=== PATIENT | male | born 1955 | race Caucasian/White ===

== ENCOUNTER 2017-05-15 19:44 | Inpatient (IN) ==
[2017-05-15] MEDS ORDERED: Piperacillin/Tazobactam 3.375 GM in 0.9 % Sodium Chloride Mini Bag 100 ML IVPB ONE (20:14)
--- NOTE | 2017-05-15 20:15 | Emergency Department Note ---
Disposition Clinical Impression: Diverticulitis, Perforated diverticulum, Intra-abdominal abscess Disposition: Admitted As Inpatient Condition: Undetermined [facility] - Forms: ED Satisfaction Letter, Work/School Release Time of Disposition: 22:04 Abdominal Pain HPI - General Chief Complaint: ED Abdominal Pain Stated Complaint: abdominal pains Time Seen by Provider: 05/15/17 20:12 Source: patient Mode of arrival: EMS Limitations: no limitations Nursing Notes Reviewed: Yes Vital Signs Reviewed: Yes - History of Present Illness HPI Narrative: 62-year-old male with history of diverticulosis arrives to the emergency emergency department complaining of abdominal pain that started 5 days ago. The patient states this progressively gotten worse. The patient states that he knew that it was his diverticulitis acting up and cut back on his food intake and decided that he was going to treat it himself. The patient states that it acutely worsened over the past 48 hours. He went to [place] urgent care with a performed a CT scan of his abdomen which demonstrated perforated diverticulitis with macro perforation and possible abscess formation. At that time the patient was transferred [facility] emergency department for further care and workup. The patient is a leukocytosis of 14.8. His potassium is also elevated at 5.4 but he has a history of CK D with the GFR of 38. This appears baseline for the patient. The patient is resting comfortably at this time with no signs of tachycardia or hypotension. His abdomen is tender to palpation without any signs of rigidity or guarding noted. Pt Subjective Complaint: abdominal pain Onset (ago): day(s) (5) Consistency: constant, Worsening Location: diffuse Pain Severity: mild, moderate Pain Scale: 2 Quality: stabbing Radiation: none Migration to: no migration Improves with: nothing Worsens with: nothing Context: history of similar episodes Associated symptoms: Reports: nausea, chills. Denies: vomiting, diarrhea, fever , constipation, dysuria, hematemesis, hematochezia, melena, hematuria Treatments prior to arrival: other (IV analgesics) - Related Data Home Medications Medication Instructions Recorded Confirmed Aspirin Enteric Coated [Aspirin EC] 81 mg PO DAILY 05/15/17 05/15/17 Atorvastatin Calcium [Lipitor] 40 mg PO DAILY 05/15/17 05/15/17 Glucosamine/D3/Boswellia Vijaya 1 each PO DAILY 05/15/17 05/15/17 [Osteo Bi-Flex Tablet] Lisinopril [Zestril] 40 mg PO DAILY 05/15/17 05/15/17 Multivit-Min/FA/Lycopen/Lutein 1 each PO DAILY 05/15/17 05/15/17 [Centrum Silver Tablet] Allergies Allergy/AdvReac Type Severity Reaction Status Date / Time No Known Allergies Allergy Verified 05/15/17 21:15 All systems ED: reviewed and negative except as stated. Constitutional: Reports: chills. Denies: fever, weakness ENT ED: Denies: congestion Cardiovascular: Denies: chest pain Respiratory: Denies: dyspnea Gastrointestinal: Reports: abdominal pain, nausea. Denies: vomiting, diarrhea Genitourinary: Denies: urgency, dysuria Musculoskeletal: Denies: back pain Integumentary: Denies: rash Neurological: Denies: headache, weakness, numbness, paresthesias Abdominal Pain PMH - Past Medical History Medical history: Reports: hyperlipidemia, hypertension Reports: diverticulosis, diverticulitis Male Surgical History: Reports: orthopedic, other Psychiatric history: Reports: no psych history - Social History Smoking status: Never smoker Alcohol use: Reports: none Drug use: Reports: none Physical Exam - General Limitations: no limitations General appearance: alert, in no apparent distress - Head Head exam: atraumatic, normocephalic, normal inspection - Eye Eye exam: Present: normal appearance, PERRL, EOMI - ENT ENT exam: normal exam, normal oropharynx, mucous membranes moist - Neck Neck exam: Present: normal inspection, full ROM, trachea midline - Chest Chest inspection: Present: normal inspection, symmetric chest wall rise - Respiratory Respiratory exam: Present: normal lung sounds bilaterally - Cardiovascular Cardiovascular exam: Present: normal rhythm, tachycardia, normal heart sounds - Abdominal Exam Abdominal exam: Present: soft, tenderness (Diffuse). Absent: distention, guarding, rebound, rigidity, heel tap sign, Salcedo's sign, Rovsing's sign, tenderness at McBurney's Point Abdominal tenderness: Present: diffuse, moderate - Extremities Exam Extremities exam: Present: normal inspection, full ROM. Absent: tenderness, pedal edema Course - Consultations Consultation #1: Spoke to Dr. Tavarez in surgery that no further recommendations at this time. Consult was placed. Time: 21:27 Vital Signs Temperature 97.6 F 05/15/17 19:48 Pulse Rate 100 05/15/17 19:48 Respiratory Rate 12 05/15/17 19:48 Blood Pressure 158/92 05/15/17 19:48 O2 Sat by Pulse Oximetry 98 05/15/17 19:48 Temperature 97.6 F 05/15/17 19:48 Pulse Rate 91 05/15/17 21:05 Respiratory Rate 20 05/15/17 21:05 Blood Pressure 131/74 05/15/17 21:05 O2 Sat by Pulse Oximetry 97 05/15/17 21:05 Oxygen Delivery Oxygen Delivery Room Air Abdominal Pain - MDM Narrative Medical decision making narrative: Patient's CT scan from the [facility] demonstrates macro perforation with concern for perforation associated with the diverticulitis. The patient was started on Zosyn. After speaking with Dr. Barnett and surgery recommended admitting to the hospitalist service. The patient will be admitted to the hospitalist service, accepted by Dr. Singleton. He requestd Flagyl. - Medical Records Medical records reviewed: Yes I reviewed the patient's medical records. - Lab Data Lab results reviewed: Yes I reviewed the patient's lab results. Lab Results 05/15/17 Range/Units 21:15 Lactic Acid 0.9 (0.5-2.2) mmol/L - Radiology Data Radiology results reviewed: Yes I reviewed the patient's radiology results.
[2017-05-15] MEDS ORDERED: 0.9 % Sodium Chloride 1,000 ML IVC ONE (21:06)
--- NOTE | 2017-05-15 21:10 | Emergency Department Note ---
START Narrative - START START: I examined this patient and my medical decision-making was reviewed with the Resident Physician. I agree with the documented findings, disposition and treatment plan as described except to the extent set forth below. 62 [facility] recent[facility] has been experiencingin increased lower and llq pain that started about 3-4 days ago with difficult with pasing stool and gas with decrased appetite and subjective fevers and chills at home had a wokrup at the [place] today whcih showed a macroperforation with diverticulitis of his sigmoid colon. WE have started IVF, zosyn and will consult surgery. blood cultures obtained. Zainab does not have a surgical abdomen but is tender to the LLQ and lower abdomen, not tahcyardiac and his blood pressure is stabe.
[2017-05-15] MEDS ORDERED: MetroNIDAZOLE 500 MG/100 ML 500 MG/100 ML BAG IVPB ONE (21:59)
--- NOTE | 2017-05-15 23:49 | Internal Med History&Physical ---
Date of Encounter: 05/15/17 Time of Encounter: 23:47 Assessment and Plan (1) Hypertension Current visit: Yes Status: Acute Continue home medication lisinopril 40 mg daily. Qualifiers: Qualified Code(s): I10 - Essential (primary) hypertension (2) Polycystic kidney disease Current visit: Yes Status: Acute Patient has polycystic kidney disease and CKD stage 3, stable. (3) DNR (do not resuscitate) Current visit: Yes Status: Acute Patient is do not resuscitate. (4) Diverticulitis Current visit: Yes Status: Acute Acute diverticulitis with macro perforation and abscess formation 321.5 cm. No peritoneal signs. No mention of free air on CT. I will start the patient on a meropenem and Flagyl. Keep NPO. Hydrate. Internal Medicine - H&P: HPI Chief complaint: abdominal pain History of present illness: Mr. Grewal is a 62 year old male was transferred from the [place] to our facility for management of complicated diverticulitis. Patient is a 62-year-old male with a history of hypertension, polycystic kidney disease, CKD stage III, dyslipidemia, with prior episode of acute diverticulitis presents to the emergency room with a main component of abdominal pain. Since Sunday 4 days ago patient started complaining of left lower quadrant abdominal pain worsens with movement and eating. He noticed difficulty defecating. He has been avoiding federal since Sunday to avoid worsening of his pain. He denies any fever or chills. Denies any hematochezia. He had prior episode of acute diverticulitis. CT scan of the abdomen and pelvis showed complicated acute diverticulitis. Colonoscopy 5 years ago unremarkable according to patient. Past Med Surg Social Fam HX - Past Medical History Medical history: hyperlipidemia, hypertension Psychiatric history: no psych history - Social History Smoking Status: Never smoker Smokeless Tobacco Status: No Alcohol use: none Drug use: none Internal Medicine - H&P: Meds Aspirin Enteric Coated [Aspirin EC] 81 mg PO DAILY 05/15/17 [History] Atorvastatin Calcium [Lipitor] 40 mg PO DAILY 05/15/17 [History] Glucosamine/D3/Boswellia Vijaya [Osteo Bi-Flex Tablet] 1 each PO DAILY 05/15/17 [ History] Lisinopril [Zestril] 40 mg PO DAILY 05/15/17 [History] Multivit-Min/FA/Lycopen/Lutein [Centrum Silver Tablet] 1 each PO DAILY 05/15/17 [History] 3 Allergy/AdvReac Type Severity Reaction Status Date / Time No Known Allergies Allergy Verified 05/15/17 21:15 All Systems PM: A 10-system review of systems was performed and is negative for pertinent findings except as documented above in the HPI. Review of systems: 10 point review of systems is negative except for HPI - Constitutional Vitals: Temp Pulse Resp BP Pulse Ox 97.9 F 92 15 109/77 97 05/15/17 23:13 05/15/17 23:13 05/15/17 23:13 05/15/17 23:13 05/15/17 23:13 Exam: Gen.: patient is alert oriented times 3 cardiac: normal S1 S2 no additional sounds or murmurs chest: no active wheezing or bronchial breathing abdomen tenderness in LLQ, no rebound or guarding lower extremity no swelling. Neuro: no new focal deficits
[2017-05-16] MEDS ORDERED: MetroNIDAZOLE 500 MG/100 ML 500 MG/100 ML BAG IVPB SCH
[2017-05-16 00:53] LABS: Basophils # 0.1 K/mcL (0.0-0.2); Basophils % 0.6 %; Eosinophils # 0.2 K/mcL (0.0-0.6); Eosinophils % 1.7 %; Hematocrit 34.5 % (37.5-50.1); Hemoglobin 10.5 g/dL (12.9-16.9); Immature Granulocytes % 0.5 % (0-4); Lymphocytes # 2.4 K/mcL (0.6-4.6); Lymphocytes % 21.5 %; Mean Corpuscular HGB Conc 30.4 g/dL (31.6-35.5); Mean Corpuscular Hemoglobin 24.3 pg (28.0-33.3); Mean Corpuscular Volume 79.9 fL (83.0-100.0); Mean Platelet Volume 9.1 fL (9.4-12.4); Monocytes # 1.1 K/mcL (0.0-1.3); Monocytes % 9.5 %; Neutrophils # 7.4 K/mcL (1.6-8.9); Platelet Count 527 K/mcL (140-400); Red Blood Count 4.32 M/mcL (4.19-5.50); Red Cell Distribution Width 15.6 % (11.5-14.5); Segmented Neutrophils % 66.2 %
[2017-05-16 00:59] LABS: INR 1.2; Prothrombin Time 13.4 Seconds (9.4-12.1)
[2017-05-16] MEDS: D5% in 0.9% NACL 1,000 ML IVC SCH ×3 (01:17→21:56)
[2017-05-16] MEDS: Meropenem 1,000 MG in Water for inj. (sterile) 10 ML IVP SCH ×3 (01:17→16:22)
[2017-05-16 01:18] LABS: Calcium 9.3 mg/dL (8.6-10.8); Magnesium 1.8 mg/dL (1.6-2.6); Potassium 3.6 mEq/L (3.5-4.5)
[2017-05-16] MEDS: MetroNIDAZOLE 500 MG/100 ML 500 MG/100 ML BAG IVPB SCH ×3 (05:52→21:47)
[2017-05-16] MEDS: *HR* Heparin 5,000 UNIT/ML VIAL SQ SCH ×2 (05:55→17:59)
[2017-05-16] MEDS ORDERED: Famotidine 20 MG/2 ML VIAL IVP SCH (06:00)
[2017-05-16] MEDS ORDERED: Aspirin Enteric Coated 81 MG Tablet PO SCH (09:00)
[2017-05-16] MEDS: Lisinopril 20 MG TABLET PO SCH (09:17)
--- NOTE | 2017-05-16 10:20 | General Surgery Consult Note ---
Date of Encounter: 05/16/17 Time of Encounter: 10:00 Assessment and Plan (1) Diverticulitis of colon with perforation Current Visit: Yes Status: Acute Continue with conservative measures including: Bowel rest except for ice chips sparingly IV fluids- 100ml/hour IV antibiotics- Meropenem and Flagyl Supportive care and pain control Serial abdominal exams No urgent surgical intervention indicated at this time Plan for interval colonoscopy in the next 6-8 weeks Surgery will continue to follow and assess progress Qualifiers: Diverticulitis bleeding: without bleeding Qualified Code(s): K57.20 - Diverticulitis of large intestine with perforation and abscess without bleeding (2) Hyperlipidemia Current Visit: Yes Status: Chronic Qualifiers: Hyperlipidemia type: unspecified Qualified Code(s): E78.5 - Hyperlipidemia , unspecified (3) Hypertension Current Visit: Yes Status: Chronic Normotensive at this time Management per medicine service Qualifiers: Hypertension type: essential hypertension Qualified Code(s): I10 - Essential (primary) hypertension (4) Polycystic kidney disease Current Visit: Yes Status: Acute Cr- 1.64 IV fluids Strict I&Os Avoid nephrotoxic medications Repeat am labs Management per medicine service (5) DVT prophylaxis Current Visit: Yes Status: Acute Heparin 5,000 units SQ twice daily for DVT prophylaxis Ambulate hallways TID History of Present Illness Consult date: 05/15/17 Reason for consult: other (Diverticulitis) Requesting physician: Yahir Carty History of present illness: Mr. Grewal is a very pleasant 62 year old male who was transferred from the [facility] last evening with diverticulitis with perforation. He states that he began having LLQ abdominal pain 5 days ago. He reports that the pain has been constant with occasional sharp/stabbing pains. He reports that the pain becomes severe approximately 2 hours after eating. He states that he has had pain similar to this in the past and it was related to diverticulitis. His last episode was 3-4 years ago and he was hospitalized at that time for 2-3 days. He states that his symptoms resolved without surgical intervention. He reports that his pain has been persistent and that he has not had anything to eat for the past 4 days. He reported to the ED yesterday for evaluation and was found to have acute diverticulitis with perforation by CT scan. He reports that he has had difficulty having bowel movements and feels constipated. His last bowel movement was 2 days ago and was very small. He has continued to pass flatus. Denies any melena or hematochezia. Denies any nausea/vomiting. He reports bloating initially but states that this has resolved. Denies any fevers/ chills. He does have an appetite. Denies any difficulty with urination. Denies any shortness of breath or chest pains. His last colonoscopy was 5 years ago at the [facility] and the patient reports that it was normal at that time. We have been asked to see and evaluate the patient for recommendations. Past Med Surg Social Fam HX - Past Medical History Source: patient, old records reviewed Medical history: arthritis, hyperlipidemia, hypertension, renal disease ( Polycystic kidney disease; CKD stage 3) Psychiatric history: no psych history - Past Surgical History Surgical History: other (Bilateral ankle surgery (1977, 1978); Colonoscopy approximately 5 years ago) - Social History Smoking Status: Never smoker Smokeless Tobacco Status: No Alcohol use: none Drug use: none Current living situation: Home - Independent Activity Level: Independent ambulation - Family History Mother Age at : 85 Cause of : Emphysema Father Living Status: Age at : 75 Cause of : Heart disease Hx Family Cardiac Disorders: Yes Brother Living Status: Still Living Hx Family Cancer: Yes (Leukemia) Hx Family Autoimmune Disorders: Yes (Lupus) Medications and Allergies Aspirin Enteric Coated [Aspirin EC] 81 mg PO DAILY 05/15/17 [History] Atorvastatin Calcium [Lipitor] 40 mg PO DAILY 05/15/17 [History] Glucosamine/D3/Boswellia Vijaya [Osteo Bi-Flex Tablet] 1 each PO DAILY 05/15/17 [ History] Lisinopril [Zestril] 40 mg PO DAILY 05/15/17 [History] Multivit-Min/FA/Lycopen/Lutein [Centrum Silver Tablet] 1 each PO DAILY 05/15/17 [History] 3 Allergy/AdvReac Type Severity Reaction Status Date / Time No Known Allergies Allergy Verified 05/15/17 21:15 Review of Systems All systems PM: reviewed and no additional remarkable complaints except as stated (in the HPI) All systems PM: A 10-system review of systems was performed and is negative for pertinent findings except as documented above in the HPI. General Surgery Exam Initial Vital Signs Temp Pulse Resp BP Pulse Ox 97.6 F 100 12 158/92 98 05/15/17 19:48 05/15/17 19:48 05/15/17 19:48 05/15/17 19:48 05/15/17 19:48 - General physical appearance well developed, well nourished, no distress - Eyes PERRL, normal ocular movement - ENT normal mucosa, atraumatic, normocephalic - Neck trachea midline - Respiratory normal expansion, normal respiratory effort, clear to auscultation - Cardiovascular Cardiovascular exam: Present: RRR - Abdomen Abdomen general surgery: Present: bowel sounds present, soft, tender Abdominal Tenderness: Present: LLQ - Integumentary Integumentary general surgery: Present: warm and dry - Neurologic Present: CN 2-12 grossly intact - Musculoskeletal Present: normal gait, normal posture - Psychiatric Psychiatric general surgery: Present: appropriate, oriented to person, oriented to place, oriented to time, speech is normal, memory intact Exam Initial Vital Signs Temp Pulse Resp BP Pulse Ox 97.6 F 100 12 158/92 98 05/15/17 19:48 05/15/17 19:48 05/15/17 19:48 05/15/17 19:48 05/15/17 19:48 Results - Labs 05/16/17 00:15 05/16/17 00:15 Abnormal lab results WBC 11.2 K/mcL (4.3-11.1) H 05/16/17 00:15 Hgb 10.5 g/dL (12.9-16.9) L 05/16/17 00:15 Hct 34.5 % (37.5-50.1) L 05/16/17 00:15 MCV 79.9 fL (83.0-100.0) L 05/16/17 00:15 MCH 24.3 pg (28.0-33.3) L 05/16/17 00:15 MCHC 30.4 g/dL (31.6-35.5) L 05/16/17 00:15 RDW 15.6 % (11.5-14.5) H 05/16/17 00:15 Plt Count 527 K/mcL (140-400) H 05/16/17 00:15 MPV 9.1 fL (9.4-12.4) L 05/16/17 00:15 PT 13.4 Seconds (9.4-12.1) H 05/16/17 00:15 Creatinine 1.64 mg/dL (0.72-1.25) H 05/16/17 00:15 Est GFR ( Amer) 52 (> 60) L 05/16/17 00:15 Est GFR (Non-Af Amer) 43 (> 60) L 05/16/17 00:15 C-Reactive Protein 184 mg/L (Less than 5) H 05/16/17 00:15 Diabetes panel 05/16/17 Range/Units 00:15 Sodium 138 (136-145) mEq/L Potassium 3.6 (3.5-4.5) mEq/L Chloride 103 (98-109) mEq/L Carbon Dioxide 23 (19-29) mEq/L BUN 26 (8-26) mg/dL Creatinine 1.64 H (0.72-1.25) mg/dL Glucose 90 (70-99) mg/dL Calcium 9.3 (8.6-10.8) mg/dL Calcium panel 05/16/17 Range/Units 00:15 Calcium 9.3 (8.6-10.8) mg/dL Pituitary panel 05/16/17 Range/Units 00:15 Sodium 138 (136-145) mEq/L Potassium 3.6 (3.5-4.5) mEq/L Chloride 103 (98-109) mEq/L Carbon Dioxide 23 (19-29) mEq/L BUN 26 (8-26) mg/dL Creatinine 1.64 H (0.72-1.25) mg/dL Glucose 90 (70-99) mg/dL Calcium 9.3 (8.6-10.8) mg/dL Adrenal panel 05/16/17 Range/Units 00:15 Sodium 138 (136-145) mEq/L Potassium 3.6 (3.5-4.5) mEq/L Chloride 103 (98-109) mEq/L Carbon Dioxide 23 (19-29) mEq/L BUN 26 (8-26) mg/dL Creatinine 1.64 H (0.72-1.25) mg/dL Glucose 90 (70-99) mg/dL Calcium 9.3 (8.6-10.8) mg/dL All other labs normal. - Imaging CT scan - abdomen: report reviewed CT scan - pelvis: report reviewed Consult Discharge Plan - Plan Referrals: [facility] [Outside] - Attending Attestation For this encounter, I have reviewed the [place] or [place] documentation, treatment plan, and medical decision making; and I have had face to face time with this patient.
--- NOTE | 2017-05-16 16:06 | Internal Med Progress Note ---
Date of Encounter: 05/16/17 Time of Encounter: 16:04 - Assessment and plan (1) Diverticulitis of colon with perforation Current Visit: Yes Status: Acute Assessment and plan: Strict NPO IV fluids.. will swithc to D5 NS Cont broad spec abx Meropenem + Flagyl Surgery on board - recommend conservative medical management and close monitoring for now d/c ASA Qualifiers: Diverticulitis bleeding: without bleeding Qualified Code(s): K57.20 - Diverticulitis of large intestine with perforation and abscess without bleeding (2) Hypertension Current Visit: Yes Status: Chronic Assessment and plan: stable with home med Lisinopril 40mg Daily Qualifiers: Hypertension type: essential hypertension Qualified Code(s): I10 - Essential (primary) hypertension (3) Polycystic kidney disease Current Visit: Yes Status: Chronic Assessment and plan: f/u as an out pt (4) Hyperlipidemia Current Visit: Yes Status: Chronic Assessment and plan: on statin Qualifiers: Hyperlipidemia type: unspecified Qualified Code(s): E78.5 - Hyperlipidemia , unspecified (5) CKD (chronic kidney disease), stage III Current Visit: Yes Status: Acute Assessment and plan: stable Cr at baseline - Subjective Interval history: Mr. Grewal is a 62 year old male with a history of hypertension, polycystic kidney disease, CKD stage III, dyslipidemia, with prior episode of acute diverticulitis presents to the [place] emergency room with abdominal pain from last 4 days. He does complaining of left lower quadrant abdominal pain worsens with movement and eating. He noticed difficulty defecating. He had further work up done at [place] ER, his CT of abd showed Acute diverticulitis with macro perforation and abscess formation 321.5 cm. No peritoneal signs. No mention of free air on CT. Pt was admitted here and started him on IV hydration, NPO and broad spec abx. His symptoms started improving now. No more abdominal pain. - Constitutional Vitals: Temp Pulse Resp BP Pulse Ox 97.4 F L 81 16 127/67 98 05/16/17 13:52 05/16/17 13:52 05/16/17 13:52 05/16/17 13:52 05/16/17 13:52 General appearance: Present: A&O X 3, no acute distress, answers questions appropriately - Head Head exam: Present: atraumatic, normal inspection - Respiratory Respiratory exam: Present: decreased breath sounds. Absent: rales, respiratory distress, rhonchi, wheezes - Cardiovascular Cardiovascular exam: Present: RRR, +S1, +S2. Absent: systolic murmur - GI/Abdominal GI/Abdominal exam: Present: distended, normal bowel sounds, soft, no peritoneal signs. Absent: rebound, rigid, tenderness - Extremities Exam Extremities exam: Absent: calf tenderness, pedal edema, tenderness - Back Exam Back exam: Absent: CVA tenderness (L), CVA tenderness (R) - Neurological Exam Neurological exam: Present: alert, oriented X3 - Psychiatric Psychiatric exam: Present: normal affect, normal mood Internal Medicine: Result - Labs CBC & Chem 7: 05/16/17 00:15 05/16/17 00:15 Labs: Short CBC 05/16/17 Range/Units 00:15 WBC 11.2 H (4.3-11.1) K/mcL Hgb 10.5 L (12.9-16.9) g/dL Hct 34.5 L (37.5-50.1) % Plt Count 527 H (140-400) K/mcL Neutrophils # 7.4 (1.6-8.9) K/mcL BMP 05/16/17 00:15 Sodium 138 Potassium 3.6 Chloride 103 Carbon Dioxide 23 BUN 26 Creatinine 1.64 H Glucose 90 Calcium 9.3 - ABG Interpretation ABG results: PT/INR, D-dimer PT 13.4 Seconds (9.4-12.1) H 05/16/17 00:15 Consult Discharge Plan - Plan Referrals: [facility] [Outside]
[2017-05-17] MEDS: Meropenem 1,000 MG in Water for inj. (sterile) 10 ML IVP SCH ×3 (00:34→20:33)
[2017-05-17] MEDS: MetroNIDAZOLE 500 MG/100 ML 500 MG/100 ML BAG IVPB SCH ×3 (05:20→21:55)
[2017-05-17] MEDS: Famotidine 20 MG/2 ML VIAL IVP SCH (05:21)
[2017-05-17] MEDS: *HR* Heparin 5,000 UNIT/ML VIAL SQ SCH ×2 (05:21→17:11)
[2017-05-17 05:50] LABS: Basophils # 0.1 K/mcL (0.0-0.2); Basophils % 0.5 %; Eosinophils # 0.2 K/mcL (0.0-0.6); Eosinophils % 1.8 %; Hematocrit 28.7 % (37.5-50.1); Immature Granulocytes % 0.3 % (0-4); Lymphocytes # 1.6 K/mcL (0.6-4.6); Lymphocytes % 17.5 %; Mean Corpuscular Hemoglobin 24.9 pg (28.0-33.3); Mean Corpuscular Volume 80.4 fL (83.0-100.0); Mean Platelet Volume 9.3 fL (9.4-12.4); Monocytes # 1.1 K/mcL (0.0-1.3); Monocytes % 12.3 %; Neutrophils # 6.2 K/mcL (1.6-8.9); Platelet Count 385 K/mcL (140-400); Red Blood Count 3.57 M/mcL (4.19-5.50); Red Cell Distribution Width 15.7 % (11.5-14.5); Segmented Neutrophils % 67.6 %
[2017-05-17 05:54] LABS: BUN/Creatinine Ratio 10 (6-26); Calcium 8.8 mg/dL (8.6-10.8); Carbon Dioxide 23 mEq/L (19-29); Chloride 112 mEq/L (98-109); Glucose 115 mg/dL (70-99); Osmolality,Calculated 299 (280-300); Potassium 4.2 mEq/L (3.5-4.5); Sodium 144 mEq/L (136-145); eGFR For African Americans > 60 (> 60); eGFR For Non-African Americans 51 (> 60)
[2017-05-17 05:55] LABS: Blood Urea Nitrogen 14 mg/dL (8-26)
[2017-05-17 05:58] LABS: Hemoglobin 8.9 g/dL (12.9-16.9)
[2017-05-17] MEDS: Lisinopril 20 MG TABLET PO SCH (08:38)
--- NOTE | 2017-05-17 11:05 | General Surgery Progress Note ---
Date of Encounter: 05/17/17 Time of Encounter: 10:30 - Assessment and Plan (1) Diverticulitis of colon with perforation Current Visit: Yes Status: Acute Continue with conservative measures including: No discomfort. States positive flatus and BM today. States appetite. IV fluids- 100ml/hour per primary medicine. IV antibiotics- Meropenem and Flagyl Supportive care and pain control Serial abdominal exams No urgent surgical intervention indicated at this time, ok to start clear liquids today (if he has any pain with p.o.-return to NPO) Plan for interval colonoscopy in the next 6-8 weeks Surgery will continue to follow and assess progress Qualifiers: Diverticulitis bleeding: without bleeding Qualified Code(s): K57.20 - Diverticulitis of large intestine with perforation and abscess without bleeding (2) Polycystic kidney disease Current Visit: Yes Status: Chronic Total fluid management per primary medicine Subjective Patient reports: no new complaints, feels better, voiding w/o difficulty, flatus , bowel movement, afebrile Objective Vital Signs - Last 8 Hours Temp Pulse Resp BP Pulse Ox 05/17/17 08:13 98 F 77 16 121/76 96 05/17/17 03:58 98.4 F 76 16 102/56 96 Intake and Output 05/16/17 05/17/17 05/17/17 23:59 07:59 15:59 Intake Total 1210 / 1210 Output Total 700 / 700 0 / 0 450 / 450 Balance 510 / 510 -450 / -450 Intake: IV Fluids 1210 / 1210 10 10 D5% And 0.9% Nacl 1000 Ml 1,000 1000 / 1000 ML @ 100 mls/hr IVC .Q10H [facility] Rx#:[id number] Merrem 1,000 MG In Water for inj. (sterile) 10 ML @ 200 mls/ hr IVP Q8HR [facility] Rx#:[id number] Flagyl Premix 500 MG/100 ML 500 200 / 200 mg In 100 ml @ 100 mls/hr IVPB Q8H [facility] Rx#:[id number] Oral 0 / 0 0 / 0 Output: Urine 700 / 700 0 / 0 450 / 450 Other: Meal Dinner NPO NPO Stool Size Small Stool Consistency soft Stool Color Brown # Voids 1 Blood Glucose* 117 108 - General physical appearance well nourished, no distress - ENT atraumatic, normocephalic - Neck Neck exam: trachea midline, no venous distension - Respiratory normal expansion, normal respiratory effort, clear to auscultation - Cardiovascular Cardiovascular exam: Present: RRR, murmurs - Abdomen Abdomen: Present: bowel sounds present, soft, non tender - Integumentary no rash, no growths - Neurologic CN 2-12 grossly intact, normal coordination, normal sensation - Musculoskeletal normal gait, normal posture - Psychiatric oriented to time, oriented to person, oriented to place, speech is normal, memory intact - Labs 05/17/17 05:11 05/17/17 05:11 Diabetes panel 05/17/17 Range/Units 05:11 Sodium 144 (136-145) mEq/L Potassium 4.2 (3.5-4.5) mEq/L Chloride 112 H (98-109) mEq/L Carbon Dioxide 23 (19-29) mEq/L BUN 14 D (8-26) mg/dL Creatinine 1.42 H (0.72-1.25) mg/dL Glucose 115 H (70-99) mg/dL Calcium 8.8 (8.6-10.8) mg/dL Calcium panel 05/17/17 Range/Units 05:11 Calcium 8.8 (8.6-10.8) mg/dL Pituitary panel 05/17/17 Range/Units 05:11 Sodium 144 (136-145) mEq/L Potassium 4.2 (3.5-4.5) mEq/L Chloride 112 H (98-109) mEq/L Carbon Dioxide 23 (19-29) mEq/L BUN 14 D (8-26) mg/dL Creatinine 1.42 H (0.72-1.25) mg/dL Glucose 115 H (70-99) mg/dL Calcium 8.8 (8.6-10.8) mg/dL Adrenal panel 05/17/17 Range/Units 05:11 Sodium 144 (136-145) mEq/L Potassium 4.2 (3.5-4.5) mEq/L Chloride 112 H (98-109) mEq/L Carbon Dioxide 23 (19-29) mEq/L BUN 14 D (8-26) mg/dL Creatinine 1.42 H (0.72-1.25) mg/dL Glucose 115 H (70-99) mg/dL Calcium 8.8 (8.6-10.8) mg/dL Consult Discharge Plan - Plan Referrals: [facility] [Outside]
[2017-05-17] MEDS: D5% in 0.9% NACL 1,000 ML IVC SCH ×3 (11:52→21:56)
--- NOTE | 2017-05-17 13:13 | Internal Med Progress Note ---
Date of Encounter: 05/17/17 Time of Encounter: 13:11 - Assessment and plan (1) Diverticulitis of colon with perforation Current Visit: Yes Status: Acute Assessment and plan: Strict NPO ICont IV fluids D5 NS Cont broad spec abx Meropenem + Flagyl - adjusted the Meropenem dose as per his creatinine clearance Surgery on board - recommend conservative medical management and close monitoring for now d/c ASA Diet orders as per surgery recommendation only Qualifiers: Diverticulitis bleeding: without bleeding Qualified Code(s): K57.20 - Diverticulitis of large intestine with perforation and abscess without bleeding (2) Hypertension Current Visit: Yes Status: Chronic Assessment and plan: stable with home med Lisinopril 40mg Daily Qualifiers: Hypertension type: essential hypertension Qualified Code(s): I10 - Essential (primary) hypertension (3) Polycystic kidney disease Current Visit: Yes Status: Chronic Assessment and plan: f/u as an out pt (4) Hyperlipidemia Current Visit: Yes Status: Chronic Assessment and plan: on statin Qualifiers: Hyperlipidemia type: unspecified Qualified Code(s): E78.5 - Hyperlipidemia , unspecified (5) CKD (chronic kidney disease), stage III Current Visit: Yes Status: Acute Assessment and plan: stable Cr at baseline - Subjective Interval history: Mr. Grewal is a 62 year old male with a history of hypertension, polycystic kidney disease, CKD stage III, dyslipidemia, with prior episode of acute diverticulitis presents to the [facility] emergency room with abdominal pain from last 4 days. He does complaining of left lower quadrant abdominal pain worsens with movement and eating. He noticed difficulty defecating. He had further work up done at [facility] ER, his CT of abd showed Acute diverticulitis with macro perforation and abscess formation 321.5 cm. No peritoneal signs. No mention of free air on CT. Pt was admitted here and started him on IV hydration, NPO and broad spec abx. His symptoms started improving now. No more abdominal pain. No events over night. Pain resolved completely.. Had a BM last night.. No blood in his stool - Constitutional Vitals: Temp Pulse Resp BP Pulse Ox 97.9 F 72 15 135/83 97 05/17/17 12:00 05/17/17 12:00 05/17/17 12:00 05/17/17 12:00 05/17/17 12:00 General appearance: Present: A&O X 3, no acute distress, answers questions appropriately - Head Head exam: Present: atraumatic, normal inspection - Neck Neck exam general surgery: Present: supple - Respiratory Respiratory exam: Present: CTAB. Absent: decreased breath sounds, respiratory distress, rhonchi, wheezes - Cardiovascular Cardiovascular exam: Present: RRR, +S1, +S2. Absent: systolic murmur - GI/Abdominal GI/Abdominal exam: Present: normal bowel sounds, soft. Absent: rebound, rigid, tenderness - Extremities Exam Extremities exam: Absent: calf tenderness, pedal edema, tenderness - Neurological Exam Neurological exam: Present: alert, oriented X3 - Psychiatric Psychiatric exam: Present: normal affect, normal mood Internal Medicine: Result - Labs CBC & Chem 7: 05/17/17 05:11 05/17/17 05:11 Labs: Short CBC 05/17/17 Range/Units 05:11 WBC 9.2 (4.3-11.1) K/mcL Hgb 8.9 L D (12.9-16.9) g/dL Hct 28.7 L (37.5-50.1) % Plt Count 385 (140-400) K/mcL Neutrophils # 6.2 (1.6-8.9) K/mcL BMP 05/17/17 05:11 Sodium 144 Potassium 4.2 Chloride 112 H Carbon Dioxide 23 BUN 14 D Creatinine 1.42 H Glucose 115 H Calcium 8.8 - ABG Interpretation ABG results: PT/INR, D-dimer PT 13.4 Seconds (9.4-12.1) H 05/16/17 00:15 Consult Discharge Plan - Plan Referrals: [facility] [Outside]
[2017-05-18] MEDS: Famotidine 20 MG/2 ML VIAL IVP SCH (05:08)
[2017-05-18] MEDS: *HR* Heparin 5,000 UNIT/ML VIAL SQ SCH (05:08)
[2017-05-18] MEDS: MetroNIDAZOLE 500 MG/100 ML 500 MG/100 ML BAG IVPB SCH (05:08)
[2017-05-18 05:49] LABS: Basophils % 0.5 %; Eosinophils # 0.2 K/mcL (0.0-0.6); Hematocrit 28.8 % (37.5-50.1); Hemoglobin 8.8 g/dL (12.9-16.9); Immature Granulocytes % 0.5 % (0-4); Lymphocytes # 1.6 K/mcL (0.6-4.6); Lymphocytes % 19.9 %; Mean Corpuscular HGB Conc 30.6 g/dL (31.6-35.5); Mean Corpuscular Hemoglobin 24.6 pg (28.0-33.3); Mean Corpuscular Volume 80.7 fL (83.0-100.0); Mean Platelet Volume 9.5 fL (9.4-12.4); Monocytes # 0.8 K/mcL (0.0-1.3); Monocytes % 10.7 %; Neutrophils # 5.2 K/mcL (1.6-8.9); Platelet Count 372 K/mcL (140-400); Red Blood Count 3.57 M/mcL (4.19-5.50); Red Cell Distribution Width 15.7 % (11.5-14.5); Segmented Neutrophils % 66.4 %
[2017-05-18 06:03] LABS: BUN/Creatinine Ratio 8 (6-26); Blood Urea Nitrogen 11 mg/dL (8-26); Calcium 8.5 mg/dL (8.6-10.8); Carbon Dioxide 23 mEq/L (19-29); Chloride 111 mEq/L (98-109); Glucose 103 mg/dL (70-99); Osmolality,Calculated 292 (280-300); Potassium 3.9 mEq/L (3.5-4.5); Sodium 141 mEq/L (136-145); eGFR For African Americans > 60 (> 60); eGFR For Non-African Americans 55 (> 60)
[2017-05-18] MEDS: Meropenem 1,000 MG in Water for inj. (sterile) 10 ML IVP SCH (07:43)
[2017-05-18] MEDS: Lisinopril 20 MG TABLET PO SCH (07:43)
[2017-05-18 07:58] VITALS: BP 141/82
--- NOTE | 2017-05-18 11:49 | General Surgery Progress Note ---
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 May transition to PO antibiotics Supportive care and pain control No urgent surgical intervention indicated at this time Plan for interval colonoscopy in the next 6-8 weeks May discharge to home from a surgery standpoint Qualifiers: Diverticulitis bleeding: without bleeding Qualified Code(s): K57.20 - Diverticulitis of large intestine with perforation and abscess without bleeding (2) Hyperlipidemia Current Visit: Yes Status: Chronic Qualifiers: Hyperlipidemia type: unspecified Qualified Code(s): E78.5 - Hyperlipidemia , unspecified (3) Hypertension Current Visit: Yes Status: Chronic Normotensive at this time Management per medicine service Qualifiers: Hypertension type: essential hypertension Qualified Code(s): I10 - Essential (primary) hypertension (4) Polycystic kidney disease Current Visit: Yes Status: Chronic Cr- 1.64>1.42>1.31 Strict I&Os Avoid nephrotoxic medications Management per medicine service (5) DVT prophylaxis Current Visit: Yes Status: Acute Heparin 5,000 units SQ twice daily for DVT prophylaxis Ambulate hallways TID Subjective Patient reports: no new complaints, feels better, tolerating liquids well (full liquids), voiding w/o difficulty, flatus, bowel movement, afebrile Objective Vital Signs - Last 8 Hours Temp Pulse Resp BP Pulse Ox 05/18/17 07:51 98.5 F 74 16 141/82 98 Intake and Output 05/17/17 05/18/17 05/18/17 23:59 07:59 15:59 Intake Total 1530 / 1530 400 / 400 240 / 240 Output Total 225 / 225 300 / 300 350 / 350 Balance 1305 / 1305 100 / 100 -110 / -110 Intake: IV Fluids 1110 / 1110 D5% And 0.9% Nacl 1000 Ml 1,000 1000 / 1000 ML @ 100 mls/hr IVC .Q10H [facility] Rx#:[id number] Merrem 1,000 MG In Water for inj. (sterile) 10 ML @ 200 mls/ hr IVP Q12H [facility] Rx#:[id number] Flagyl Premix 500 MG/100 ML 500 100 / 100 mg In 100 ml @ 100 mls/hr IVPB Q8H [facility] Rx#:[id number] Oral 420 / 420 400 / 400 240 / 240 Output: Urine 225 / 225 300 / 300 350 / 350 Other: Meal Breakfast Percent of Meal Consumed 100% # Voids 0 # Bowel Movements 1 - General physical appearance well developed, well nourished, no distress, no pain - Eyes normal ocular movement - ENT normal mucosa, atraumatic, normocephalic - Neck Neck exam: trachea midline - Respiratory normal expansion, normal respiratory effort, clear to auscultation - Cardiovascular Cardiovascular exam: Present: RRR - Abdomen Abdomen: Present: bowel sounds present, soft, non tender - Neurologic CN 2-12 grossly intact - Musculoskeletal normal gait, normal posture - Psychiatric oriented to time, oriented to person, oriented to place, speech is normal, memory intact - Labs 05/18/17 05:07 05/18/17 05:07 Diabetes panel 05/18/17 Range/Units 05:07 Sodium 141 (136-145) mEq/L Potassium 3.9 (3.5-4.5) mEq/L Chloride 111 H (98-109) mEq/L Carbon Dioxide 23 (19-29) mEq/L BUN 11 (8-26) mg/dL Creatinine 1.31 H (0.72-1.25) mg/dL Glucose 103 H (70-99) mg/dL Calcium 8.5 L (8.6-10.8) mg/dL Calcium panel 05/18/17 Range/Units 05:07 Calcium 8.5 L (8.6-10.8) mg/dL Pituitary panel 05/18/17 Range/Units 05:07 Sodium 141 (136-145) mEq/L Potassium 3.9 (3.5-4.5) mEq/L Chloride 111 H (98-109) mEq/L Carbon Dioxide 23 (19-29) mEq/L BUN 11 (8-26) mg/dL Creatinine 1.31 H (0.72-1.25) mg/dL Glucose 103 H (70-99) mg/dL Calcium 8.5 L (8.6-10.8) mg/dL Adrenal panel 05/18/17 Range/Units 05:07 Sodium 141 (136-145) mEq/L Potassium 3.9 (3.5-4.5) mEq/L Chloride 111 H (98-109) mEq/L Carbon Dioxide 23 (19-29) mEq/L BUN 11 (8-26) mg/dL Creatinine 1.31 H (0.72-1.25) mg/dL Glucose 103 H (70-99) mg/dL Calcium 8.5 L (8.6-10.8) mg/dL Consult Discharge Plan - Plan Additional Instructions: Low residue diet for the next 8 weeks Referrals: [facility] [Outside] Timi Tavarez DO [Partnered Physician] - 05/29/17 9:10 am (hospital follow-up ; discuss interval colonoscopy) - Attending Attestation For this encounter, I have reviewed the PROFESSOR OF ENVIRONMENTAL STUDIES or PA documentation, treatment plan, and medical decision making; and I have had face to face time with this patient.
--- NOTE | 2017-05-18 11:54 | Discharge Summary ---
Date of Encounter: 05/18/17 Time of Encounter: 11:49 - Discharge Diagnosis (1) Diverticulitis of colon with perforation Priority: Primary Status: Acute Qualifiers: Qualified Code(s): K57.20 - Diverticulitis of large intestine with perforation and abscess without bleeding (2) Hypertension Priority: Secondary Status: Chronic Qualifiers: Qualified Code(s): I10 - Essential (primary) hypertension (3) Polycystic kidney disease Priority: Secondary Status: Chronic (4) Hyperlipidemia Priority: Secondary Status: Chronic Qualifiers: Qualified Code(s): E78.5 - Hyperlipidemia, unspecified (5) CKD (chronic kidney disease), stage III Priority: Secondary Status: Acute - Discharge Medications Prescriptions: levoFLOXacin [Levaquin] 500 mg PO DAILY #11 tablet metroNIDAZOLE [Flagyl] 500 mg PO TID #33 tablet Home Medications: Aspirin Enteric Coated [Aspirin EC] 81 mg PO DAILY 05/15/17 [History] Atorvastatin Calcium [Lipitor] 40 mg PO DAILY 05/15/17 [History] Glucosamine/D3/Boswellia Vijaya [Osteo Bi-Flex Tablet] 1 each PO DAILY 05/15/17 [ History] Lisinopril [Zestril] 40 mg PO DAILY 05/15/17 [History] Multivit-Min/FA/Lycopen/Lutein [Centrum Silver Tablet] 1 each PO DAILY 05/15/17 [History] levoFLOXacin [Levaquin] 500 mg PO DAILY #11 tablet 05/18/17 [Rx] metroNIDAZOLE [Flagyl] 500 mg PO TID #33 tablet 05/18/17 [Rx] Allergies/Adverse Reactions: 3 Allergy/AdvReac Type Severity Reaction Status Date / Time No Known Allergies Allergy Verified 05/15/17 21:15 Date of admission: 05/15/17 22:12 Primary care physician: PCP [facility] - Patient Status Disposition: Home, Self-Care Condition: Good Overall status at discharge: patient is back to baseline - Discharge Instructions Follow Up With: [facility] [Outside] Timi Tavarez DO [Partnered Physician] - Additional Instructions: Please come back to ER right away If you notice any abdomen distention / worsening Abd pain / Nausea / Vomiting / Blood in stool Also f/u with surgery Dr. Donaldson as scheduled by them - Diet and Activity Activity: increase activity as tolerated Diet: other (Soft and low residue diet) Hospital course: Mr. Grewal is a 62 year old male with a history of hypertension, polycystic kidney disease, CKD stage III, dyslipidemia, with prior episode of acute diverticulitis presents to the [facility] emergency room with abdominal pain from last 4 days. He does complaining of left lower quadrant abdominal pain worsens with movement and eating. He noticed difficulty defecating. He had further work up done at [facility] ER, his CT of abd showed Acute diverticulitis with macro perforation and abscess formation 321.5 cm. No peritoneal signs. No mention of free air on CT. Pt was admitted here and started him on IV hydration, NPO and broad spec abx. Pt was seen by surgery, who recommend conservative noon operable medical management only with IV abx and IV hydration. His abdominal pain resolved completely. He has been tolerating full liquid diet well since y/d. So advanced his diet today. Pt was evaluated surgery today and recommend to d/c him home with PO abx and f/u with them as an out pt. He does need Colonoscopy in 6-8 weeks. I did give him the instructions to come back to ER right away If he notices any abdomen distention / worsening Abd pain / Nausea / Vomiting / Blood in stool. - Time Spent with Patient Total time spent providing and/or coordinating discharge services: - Constitutional Vitals: Temp Pulse Resp BP Pulse Ox 98.5 F 74 16 141/82 98 05/18/17 07:51 05/18/17 07:51 05/18/17 07:51 05/18/17 07:51 05/18/17 07:51 General appearance: Present: A&O X 3, no acute distress, answers questions appropriately - Head Head exam: Present: atraumatic, normal inspection - Respiratory Respiratory exam: Present: CTAB. Absent: accessory muscle use, rales, rhonchi, wheezes - Cardiovascular Cardiovascular exam: Present: RRR, +S1, +S2. Absent: diastolic murmur, gallop, rubs, systolic murmur - GI/Abdominal GI/Abdominal exam: Present: normal bowel sounds, soft. Absent: distended, rebound, rigid, tenderness - Extremities Exam Extremities exam: Absent: calf tenderness, pedal edema, tenderness - Back Exam Back exam: Absent: CVA tenderness (L), CVA tenderness (R) - Psychiatric Psychiatric exam: Present: normal affect, normal mood
== END 2017-05-18 13:38 | disposition home or self-care (01) | DRG 392 ==
LOC: EMEROO 19:44 → 3ANU 22:12
PROVIDERS: ADMIT Pediatrics; ATTEND Family Medicine

== ENCOUNTER 2017-07-11 11:29 | Inpatient (IN) ==
--- NOTE | 2017-07-11 11:47 | History & Physical Report ---
Date of Encounter: 07/11/17 Time of Encounter: 11:46 24 Hour HP Update - Instructions Instructions: If the History and Physical is less than 30 days old and was completed prior to A.M. admission and or procedure and has NOT been updated on calendar day of procedure please complete this update prior to performing procedure. - Update Patient reports changes in Medical Condition: No Changes in examination, assessment, or condition: No Changes in Medication: No Preop tests/diagnostics Reviewed: Yes Surgery Remains Indicated: Yes Consent for Planned Operative Procedure(s) Verified: Yes - Pre-Operative Checklist Preoperative Checklist Indicated: Yes Prophylactic Antibiotic Ordered: Yes Home Medications Include Beta Sandy: No
[2017-07-11] MEDS ORDERED: Lidocaine -MPF 1% 2 ML VIAL ID ONE (11:53)
[2017-07-11] MEDS ORDERED: cefOXitin 2,000 MG in Water for inj. (sterile) 20 ML 10 ML IVP ONE (11:53)
--- NOTE | 2017-07-11 11:57 | Anesthesia Evaluation PreOp ---
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 HX Other Medical History: Renal (pollycystic kidney ds) Alcohol Use: none Drug use: none Medications and Allergies Aspirin Enteric Coated [Aspirin EC] 81 mg PO DAILY 05/15/17 [History] Atorvastatin Calcium [Lipitor] 40 mg PO DAILY 05/15/17 [History] Glucosamine/D3/Boswellia Vijaya [Osteo Bi-Flex Tablet] 1 each PO DAILY 05/15/17 [ History] Lisinopril [Zestril] 40 mg PO DAILY 05/15/17 [History] Multivit-Min/FA/Lycopen/Lutein [Centrum Silver Tablet] 1 each PO DAILY 05/15/17 [History] Ciprofloxacin [Cipro] 500 mg PO BID #20 tablet 06/25/17 [Rx] metroNIDAZOLE [Flagyl] 500 mg PO TID #30 tablet 06/25/17 [Rx] 3 Allergy/AdvReac Type Severity Reaction Status Date / Time No Known Allergies Allergy Verified 06/25/17 12:38 Anesthesia Results - Imaging EKG: report reviewed (SINUS RHYTHM) <Nick Mohan - Last Filed: 07/11/17 12:44> Date of Encounter: 07/11/17 - Past History Anesthesia History: No Prior Anesthetic Complications - Meds/Allergy Pre-op Review Medications Reviewed: Yes Allergies Reviewed: Yes Beta Blockers on Current Med List: No Anesthesia Results - Imaging EKG: report reviewed Anesthesia Exam O2 Sat Height 1.7 m Height 1.7 m Height 1.7 m Weight 78.925 kg Weight 78.925 kg Weight 78.925 kg O2 Sat by Pulse Oximetry 99 Vital Signs Temp Pulse Resp BP Pulse Ox 97.6 F 99 18 138/103 99 07/11/17 11:58 07/11/17 11:58 07/11/17 11:58 07/11/17 11:58 07/11/17 11:58 NPO (# of Hours): >8hrs Pain Scale: 0 Pain Scale Used: Numeric (1 - 10) - HEENT Pupil (Motor): Pupils equal Mallampati: II Teeth: Edentulous Oral Opening: Greater than 3 - INVOICE MACHINE OPERATOR LOC: Oriented INVOICE MACHINE OPERATOR Motor: Normal RUE, Normal LUE, Normal RLE, Normal LLE, Normal Face INVOICE MACHINE OPERATOR Sensory: Normal: RUE, LUE, RLE, LLE, Face - Cardiac Rhythm: Regular Murmur: None - Pulmonary Breath Sounds: bilateral Clear Respiratory Effort: Symmetrical Anesthesia Assess/Plan ASA Score: 2 Modified Qi Scale for Level of Consciousness: Cooperative, oriented, and tranquil Anesthetic Plan: General Autologous Blood: No Monitoring Plan: Standard Monitors Recovery Plan: PACU
[2017-07-11] MEDS ORDERED: Ringers Solution, Lactated 1,000 ML IVC SCH (12:00)
[2017-07-11] MEDS ORDERED: *HR* Labetalol 20 MG/4 ML SYRINGE IVP PRN (12:45)
[2017-07-11] MEDS ORDERED: Dexamethasone 4 MG/ML VIAL IVP PRN (12:45)
[2017-07-11] MEDS ORDERED: *HR* HYDROmorphone (PF) 1 MG/ML SYRINGE IVP PRN (12:45)
[2017-07-11] MEDS ORDERED: Ondansetron 4 MG/2 ML VIAL IVP PRN (12:45)
[2017-07-11] MEDS ORDERED: *HR* PHENYLEPHRINE 1,000 MCG/10 ML SYRINGE IVP ONE (13:17)
[2017-07-11] MEDS ORDERED: Lidocaine -MPF 2% 2 ML VIAL ONE (13:31)
[2017-07-11] MEDS ORDERED: *HR* Propofol 200 MG/20 ML VIAL IVP ONE (13:31)
[2017-07-11] MEDS ORDERED: *HR* Rocuronium Bromide 50 MG/5 ML VIAL ONE ×2 (13:31→15:26)
[2017-07-11] MEDS ORDERED: *HR* Succinylcholine 200 MG/10 ML VIAL IVP ONE (13:31)
[2017-07-11] MEDS ORDERED: *HR* Midazolam HCl 2 MG/2 ML VIAL ONE (13:31)
[2017-07-11] MEDS ORDERED: *HR* FentaNYL (PF) 100 MCG/2 ML VIAL ONE ×2 (13:31→15:30)
[2017-07-11] MEDS ORDERED: Dexamethasone 4 MG/ML VIAL ONE (14:53)
[2017-07-11] MEDS ORDERED: Ondansetron 4 MG/2 ML VIAL ONE (14:53)
[2017-07-11] MEDS ORDERED: Neostigmine Methylsulfate 3 MG/3 ML SYRINGE ONE (15:47)
[2017-07-11] MEDS ORDERED: *HR* HYDROmorphone 2 MG/ML SYRINGE ONE (15:59)
--- NOTE | 2017-07-11 16:18 | Operative Note ---
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 After adequate sedation anesthesia patient was placed in a lithotomy position. After proper timeout a 12 mm cannula site was placed right superior to the umbilicus. Pneumoperitoneum was greater. A 13 mm cannula was placed in right lower quadrant. 5 mm camera was placed in the right upper quadrant. An 8 mm cannula was placed in subxiphoid region followed by another 8 mm in the left lower quadrant. Patient was placed in a headdown position. The robot was docked over the patient's left hip. Small bowel swept out of the pelvis. Rectosigmoid colon was then grasped and retracted cephalad. The peritoneum was then scored level of the sacral promontory. The left ureter was identified and kept on harm's way. The inferior mesenteric artery was then taken with a vessel sealer. The lateral rectosigmoid stalks were taken down the vessel sealer. The dissection was carried out down to approximate 4 cm above the pelvic floor. Rectosigmoid colon was dissected free from the retro-pubic tubercle region. Once it was freed a 45 mm robotic Endo staplers fired across the rectum. Once it was retracted and area was demarcated on the sigmoid colon for transection. Indocyanine green was infused and we had excellent perfusion. The splenic flexure was also taken down and mobilized. This mobilization allowed for less tension on the anastomosis. A counterincision was made in the suprapubic region. Dissection carried down the anterior rectus sheath. The rectus muscles were then divided in the midline with Felicia clamp. Once they were split the rectosigmoid colon was delivered. Hilary bowel clamps are used to place across the colon proximal and distal and transected. Allis clamps are placed on the bowel and then a pursestring suture device placed on the colon. 3-0 Prolene suture was passed. A pursestring sutures and created and a 33 mm EEA anvil was placed. Suture was tied and secured. Colon was then placed back in the pelvis. The stapler was passed through the anal canal and to the rectal stump and then the spear was placed through the staple line. The anvil was then connected secured and fired. There were 2 excellent donuts. There were several 2-0 silk sutures used to buttress the staple line. A leak test revealed no leak. At that point the procedure was terminated. All incisions are closed with 0 Vicryl suture and 4-0 Vicryl suture. Marcaine was inserted in the Pfannenstiel incision. She tolerated the procedure well.
--- NOTE | 2017-07-11 17:28 | Anesthesia Evaluation Post Op ---
Date of Encounter: 07/11/17 Time of Encounter: 17:26 - Vital Signs Vital Signs: Vital Signs/O2 Sat/Glucose, Most Recent Temp Pulse Resp BP Pulse Ox 98.3 F 93 14 156/86 98 07/11/17 17:25 07/11/17 17:25 07/11/17 17:25 07/11/17 17:25 07/11/17 17:25 - Lungs Lungs: Clear Ascult./Percussion - Airway Airway: Non-obstructed - Cardiovascular Regular Rate - Mental Status Mental Status: Alert & Oriented, Answers Appropriately - Pain Pain Scale: 1 Pain Scale used: Numeric (1 - 10) - Nausea Vomiting Nausea Vomiting: Not Present - Hydration Hydration: Ice chips, Contreras catheter Notes: 07/11/17 17:27 AAOx3,VSS with no complaints - Discharge PostOp Status: Transfer Patient to floor
[2017-07-11] MEDS ORDERED: *HR* Morphine 2 MG/ML SYRINGE IVP PRN (17:50)
[2017-07-11] MEDS ORDERED: Naloxone 0.4 MG/ML INJ IVP PRN (17:50)
[2017-07-11] MEDS: *HR* Heparin 5,000 UNIT/ML VIAL SQ SCH (19:43)
[2017-07-11] MEDS: D5% in 0.45% NACL 1,000 ML IVC SCH (19:44)
[2017-07-12] MEDS: *HR* Heparin 5,000 UNIT/ML VIAL SQ SCH ×2 (05:22→18:31)
[2017-07-12 06:52] LABS: Basophils % 0.1 %; Hematocrit 34.5 % (37.5-50.1); Hemoglobin 10.9 g/dL (12.9-16.9); Immature Granulocytes % 0.3 % (0-4); Lymphocytes # 0.5 K/mcL (0.6-4.6); Lymphocytes % 5.5 %; Mean Corpuscular HGB Conc 31.6 g/dL (31.6-35.5); Mean Corpuscular Hemoglobin 25.5 pg (28.0-33.3); Mean Corpuscular Volume 80.6 fL (83.0-100.0); Mean Platelet Volume 9.5 fL (9.4-12.4); Monocytes # 0.7 K/mcL (0.0-1.3); Neutrophils # 7.4 K/mcL (1.6-8.9); Platelet Count 293 K/mcL (140-400); Red Blood Count 4.28 M/mcL (4.19-5.50); Red Cell Distribution Width 19.3 % (11.5-14.5); Segmented Neutrophils % 86.1 %
[2017-07-12 07:37] LABS: BUN/Creatinine Ratio 11 (6-26); Blood Urea Nitrogen 15 mg/dL (8-23); Calcium 8.3 mg/dL (8.6-10.3); Carbon Dioxide 26 mEq/L (23-29); Chloride 106 mEq/L (98-107); Glucose 164 mg/dL (70-105); Osmolality,Calculated 288 (280-300); Potassium 4.4 mEq/L (3.5-5.1); Sodium 137 mEq/L (136-145); eGFR For African Americans > 60 (> 60); eGFR For Non-African Americans 51 (> 60)
[2017-07-12] MEDS: D5% in 0.45% NACL 1,000 ML IVC SCH (09:48)
--- NOTE | 2017-07-12 10:46 | General Surgery Progress Note ---
Date of Encounter: 07/12/17 Time of Encounter: 08:00 - Assessment and Plan (1) Perforated diverticulum Current Visit: Yes Status: Acute Date of procedure: 07/11/17 Pre-op diagnosis: History of perforated sigmoid diverticulitis Post-op diagnosis: same Procedure: Robotic sigmoid resection with 33 mm EEA stapling Anesthesia: SHIVANI Surgeon: Timi Tavarez Estimated blood loss (cc): 50 POD #1 as above. Pathology pending Abdominal exam is overall benign. His CHETNA drain is noted to have 100 ml dark red output (noted 120 ml since surgery) . He denies flatus, BM, n/v, or worsening discomfort. No blood noted in the 3-way spear. Plan: CLD, consider advancing to full liquid diet this afternoon. Continue CHETNA to bulb suction Ambulate as tolerated continue GI and DVT prophylaxis Continue discomfort management: PO oxycodone, may take with extra dose of Tylenol, PRN IV morphine, no NSAID use given CKD history IS use 10x QH while awake Repeat am labs (2) CKD (chronic kidney disease), stage III Current Visit: No Status: Acute Creatinine Currently 1.41. Baseline creatinine appears to be around 1.27-1.64 Currently negative balance fluid status. Will Bolus with 500 ML's normal saline. Will continue gentle hydration and monitor renal function. Do not use NSAIDs for pain control Repeat am labs (3) Polycystic kidney disease Current Visit: No Status: Chronic Subjective Patient reports: no new complaints, feels better, still having pain, pain is less, tolerating liquids well, voiding w/o difficulty (per spear), no flatus, no bowel movement, afebrile Objective Vital Signs - Last 8 Hours Temp Pulse Resp BP Pulse Ox 07/12/17 08:17 98.0 F 65 16 154/81 98 Intake and Output 07/11/17 07/12/17 07/12/17 23:59 07:59 15:59 Intake Total 0 / 0 1520 / 1520 Output Total 1160 / 1160 850 / 850 0 / 0 Balance -1160 / -1160 -850 / -850 1520 / 1520 Intake: IV Fluids 1000 / 1000 D5% And 0.45% Nacl 1000 Ml Bag 1000 / 1000 1,000 ML @ 75 mls/hr IVC . [id number] [facility] Rx#:[id number] Oral 0 / 0 520 / 520 Output: Urine 900 / 900 Estimated Blood Loss 100 / 100 Urine Amount (Catheter) 140 / 140 Catheter 850 / 850 Wound Drainage 0 / 0 Right Abdomen 0 / 0 Other: Meal Breakfast - General physical appearance well nourished, no distress, no pain (states only with movement) - ENT atraumatic, normocephalic - Neck Neck exam: trachea midline, no venous distension - Respiratory normal expansion, normal respiratory effort, clear to auscultation - Cardiovascular Cardiovascular exam: Present: RRR, murmurs, distant heart sounds - Abdomen Abdomen: Present: bowel sounds present (faint), soft, tender (Expected postoperative) Hernia: none - Integumentary no abnormal pigmentation - Neurologic normal coordination, normal sensation - Musculoskeletal normal gait, normal posture - Psychiatric oriented to time, oriented to person, oriented to place, speech is normal, memory intact - Labs 07/12/17 06:34 07/12/17 06:34 Diabetes panel 07/12/17 Range/Units 06:34 Sodium 137 (136-145) mEq/L Potassium 4.4 (3.5-5.1) mEq/L Chloride 106 (98-107) mEq/L Carbon Dioxide 26 (23-29) mEq/L BUN 15 (8-23) mg/dL Creatinine 1.41 H (0.70-1.30) mg/dL Glucose 164 H (70-105) mg/dL Calcium 8.3 L (8.6-10.3) mg/dL Calcium panel 07/12/17 Range/Units 06:34 Calcium 8.3 L (8.6-10.3) mg/dL Pituitary panel 07/12/17 Range/Units 06:34 Sodium 137 (136-145) mEq/L Potassium 4.4 (3.5-5.1) mEq/L Chloride 106 (98-107) mEq/L Carbon Dioxide 26 (23-29) mEq/L BUN 15 (8-23) mg/dL Creatinine 1.41 H (0.70-1.30) mg/dL Glucose 164 H (70-105) mg/dL Calcium 8.3 L (8.6-10.3) mg/dL Adrenal panel 07/12/17 Range/Units 06:34 Sodium 137 (136-145) mEq/L Potassium 4.4 (3.5-5.1) mEq/L Chloride 106 (98-107) mEq/L Carbon Dioxide 26 (23-29) mEq/L BUN 15 (8-23) mg/dL Creatinine 1.41 H (0.70-1.30) mg/dL Glucose 164 H (70-105) mg/dL Calcium 8.3 L (8.6-10.3) mg/dL - VTE Documentation of Mechanical Device: Intermittent pneumatic compression device Consult Discharge Plan - Plan Referrals: Daysi Cardenas CNP [Advanced Practice Nurse] - 07/24/17 1:40 pm [facility] Care Provider[facility] -
[2017-07-12] MEDS ORDERED: 0.9 % Sodium Chloride 500 ML IVC ONE (10:53)
[2017-07-12] MEDS ORDERED: *HR* OxyCODONE/APAP 5/325 TABLET PO PRN (10:57)
[2017-07-12] MEDS ORDERED: Acetaminophen 325 MG TABLET PO PRN (10:57)
[2017-07-12] MEDS: 0.9 % Sodium Chloride 1,000 ML IVC SCH (18:33)
[2017-07-12] MEDS: Pantoprazole 40 MG VIAL IVP SCH (18:33)
[2017-07-13 05:18] LABS: BUN/Creatinine Ratio 10 (6-26); Blood Urea Nitrogen 14 mg/dL (8-23); Calcium 8.1 mg/dL (8.6-10.3); Carbon Dioxide 26 mEq/L (23-29); Chloride 110 mEq/L (98-107); Glucose 114 mg/dL (70-105); Osmolality,Calculated 291 (280-300); Potassium 3.9 mEq/L (3.5-5.1); Sodium 140 mEq/L (136-145); eGFR For African Americans > 60 (> 60); eGFR For Non-African Americans 53 (> 60)
[2017-07-13] MEDS: *HR* Heparin 5,000 UNIT/ML VIAL SQ SCH ×2 (05:20→17:18)
[2017-07-13 05:26] LABS: Basophils % 0.1 %; Eosinophils % 0.1 %; Hematocrit 32.7 % (37.5-50.1); Hemoglobin 10.2 g/dL (12.9-16.9); Immature Granulocytes % 0.4 % (0-4); Lymphocytes # 1.3 K/mcL (0.6-4.6); Mean Corpuscular HGB Conc 31.2 g/dL (31.6-35.5); Mean Corpuscular Hemoglobin 25.3 pg (28.0-33.3); Mean Corpuscular Volume 81.1 fL (83.0-100.0); Mean Platelet Volume 9.7 fL (9.4-12.4); Platelet Count 316 K/mcL (140-400); Red Blood Count 4.03 M/mcL (4.19-5.50); Segmented Neutrophils % 79.4 %
[2017-07-13] MEDS: Pantoprazole 40 MG VIAL IVP SCH (08:33)
[2017-07-13] MEDS: 0.9 % Sodium Chloride 1,000 ML IVC SCH ×2 (08:34→23:10)
--- NOTE | 2017-07-13 11:03 | General Surgery Progress Note ---
Date of Encounter: 07/13/17 Time of Encounter: 10:15 - Assessment and Plan (1) Perforated diverticulum Current Visit: Yes Status: Acute POD #2 Robotic assisted sigmoid resection with Dr. Tavarez Pathology pending Continue clear liquid diet while awaiting return of bowel function IV fluids Supportive care and pain control IS every 1 hour while awake PPI therapy daily Ambulate hallways TID with assistance Continue spear catheter for at least 2 weeks (bladder injury secondary to bowel being adherent to bladder) (2) CKD (chronic kidney disease), stage III Current Visit: No Status: Chronic Stable Cr- 1.41>1.36 Strict I&Os Continue spear catheter to SD for 2 weeks Avoid nephrotoxic medications (3) Polycystic kidney disease Current Visit: No Status: Chronic (4) Hyperlipidemia Current Visit: No Status: Chronic Qualifiers: Hyperlipidemia type: unspecified Qualified Code(s): E78.5 - Hyperlipidemia , unspecified (5) DVT prophylaxis Current Visit: No Status: Acute Heparin 5,000 units SQ twice daily for DVT prophylaxis Ambulate hallways TID with assistance EPCDs to bilateral lower extremities for DVT prophylaxis Subjective Patient reports: no new complaints, feels better, still having pain, pain is less, no flatus, no bowel movement, afebrile Objective Vital Signs - Last 8 Hours Temp Pulse Resp BP Pulse Ox 07/13/17 07:05 97.9 F 81 15 163/81 95 07/13/17 04:47 97.9 F 54 15 147/82 95 Intake and Output 07/12/17 07/13/17 07/13/17 23:59 07:59 15:59 Intake Total 820 / 820 1300 / 1300 360 / 360 Output Total 520 / 520 1255 / 1255 Balance 300 / 300 45 / 45 360 / 360 Intake: IV Fluids 1000 / 1000 0.9 % Sodium Chloride 1,000 ML 1000 / 1000 @ 75 mls/hr IVC .[id number] [facility] Rx #:[id number] Oral 820 / 820 300 / 300 360 / 360 Output: Catheter 500 / 500 1225 / 1225 Wound Drainage 20 / 20 30 / 30 Right Abdomen 20 / 20 30 / 30 Other: Meal Clears Breakfast Percent of Meal Consumed 0% Output, CBI Fluid 500 Weight 78.95 kg Patient Weight 07/13/17 23:59 Weight 78.95 kg - General physical appearance well developed, well nourished, no distress - Eyes normal ocular movement - ENT normal mucosa, atraumatic, normocephalic - Neck Neck exam: trachea midline - Respiratory normal respiratory effort, clear to auscultation - Cardiovascular Cardiovascular exam: Present: RRR - Abdomen Abdomen: Present: bowel sounds present, soft, tender (Expected postoperative tenderness), wound (CHETNA drain to right lower quadrant with serous drainage noted) - Incision Incision: Present: clean and dry, intact - Genitourinary other (Three-way Spear catheter to straight drain with clear, yellow urine) - Neurologic CN 2-12 grossly intact - Psychiatric oriented to time, oriented to person, oriented to place, speech is normal, memory intact - Labs 07/13/17 04:21 07/13/17 04:21 Diabetes panel 07/13/17 Range/Units 04:21 Sodium 140 (136-145) mEq/L Potassium 3.9 (3.5-5.1) mEq/L Chloride 110 H (98-107) mEq/L Carbon Dioxide 26 (23-29) mEq/L BUN 14 (8-23) mg/dL Creatinine 1.36 H (0.70-1.30) mg/dL Glucose 114 H (70-105) mg/dL Calcium 8.1 L (8.6-10.3) mg/dL Calcium panel 07/13/17 Range/Units 04:21 Calcium 8.1 L (8.6-10.3) mg/dL Pituitary panel 07/13/17 Range/Units 04:21 Sodium 140 (136-145) mEq/L Potassium 3.9 (3.5-5.1) mEq/L Chloride 110 H (98-107) mEq/L Carbon Dioxide 26 (23-29) mEq/L BUN 14 (8-23) mg/dL Creatinine 1.36 H (0.70-1.30) mg/dL Glucose 114 H (70-105) mg/dL Calcium 8.1 L (8.6-10.3) mg/dL Adrenal panel 07/13/17 Range/Units 04:21 Sodium 140 (136-145) mEq/L Potassium 3.9 (3.5-5.1) mEq/L Chloride 110 H (98-107) mEq/L Carbon Dioxide 26 (23-29) mEq/L BUN 14 (8-23) mg/dL Creatinine 1.36 H (0.70-1.30) mg/dL Glucose 114 H (70-105) mg/dL Calcium 8.1 L (8.6-10.3) mg/dL - VTE Documentation of Mechanical Device: Intermittent pneumatic compression device Consult Discharge Plan - Plan Referrals: Daysi Cardenas CNP [Advanced Practice Nurse] - 07/24/17 1:40 pm [facility] [Primary Care Provider[facility] - - Attending Attestation For this encounter, I have reviewed the BU[employer] OPERATOR or PA documentation, treatment plan, and medical decision making; and I have had face to face time with this patient.
[2017-07-14] MEDS: 0.9 % Sodium Chloride 1,000 ML IVC SCH (01:31)
--- NOTE | 2017-07-14 04:49 | General Surgery Progress Note ---
Date of Encounter: 07/14/17 Time of Encounter: 04:47 - Assessment and Plan (1) Perforated diverticulum Current Visit: Yes Status: Acute POD #3 Robotic assisted sigmoid resection with Dr. Tavarez Pathology pending Continue clear liquid diet while awaiting return of bowel function IV fluids Supportive care and pain control IS every 1 hour while awake PPI therapy daily Ambulate hallways TID with assistance Plan to Continue spear catheter for 2 weeks d/t bladder injury, secondary to bowel being adherent to bladder (2) CKD (chronic kidney disease), stage III Current Visit: No Status: Chronic Cr- 1.41>1.36 > 07/14 AM BMP pending Strict I&Os Continue spear catheter to SD for 2 weeks Avoid nephrotoxic medications, if possible (3) Leukocytosis Current Visit: Yes Status: Acute 07/14 CBC pending. Pt Afebrile. Hemodynamically stable. (4) Polycystic kidney disease Current Visit: No Status: Chronic (5) Hyperlipidemia Current Visit: No Status: Chronic Qualifiers: Hyperlipidemia type: unspecified Qualified Code(s): E78.5 - Hyperlipidemia , unspecified (6) DVT prophylaxis Current Visit: Yes Status: Acute Heparin 5,000 U SQ BID Ambulate hallways TID with assistance, or as tolerated EPCDs Objective Vital Signs - Last 8 Hours Temp Pulse Resp BP Pulse Ox 07/14/17 04:12 98.3 F 75 18 163/81 95 07/13/17 23:33 98.4 F 81 18 163/89 95 Intake and Output 07/13/17 07/13/17 07/14/17 15:59 23:59 07:59 Intake Total 360 / 360 1000 / 1000 0 / 0 Output Total 800 / 800 690 / 690 550 / 550 Balance -440 / -440 310 / 310 -550 / -550 Intake: IV Fluids 1000 / 1000 0.9 % Sodium Chloride 1,000 ML 1000 / 1000 @ 75 mls/hr IVC .[id number] [facility] Rx #:[id number] Oral 360 / 360 0 / 0 0 / 0 Output: Catheter 800 / 800 650 / 650 500 / 500 Wound Drainage 40 / 40 50 / 50 Right Abdomen 40 / 40 50 / 50 Other: Meal Breakfast - Labs 07/13/17 04:21 07/13/17 04:21 Diabetes panel 07/13/17 Range/Units 04:21 Sodium 140 (136-145) mEq/L Potassium 3.9 (3.5-5.1) mEq/L Chloride 110 H (98-107) mEq/L Carbon Dioxide 26 (23-29) mEq/L BUN 14 (8-23) mg/dL Creatinine 1.36 H (0.70-1.30) mg/dL Glucose 114 H (70-105) mg/dL Calcium 8.1 L (8.6-10.3) mg/dL Calcium panel 07/13/17 Range/Units 04:21 Calcium 8.1 L (8.6-10.3) mg/dL Pituitary panel 07/13/17 Range/Units 04:21 Sodium 140 (136-145) mEq/L Potassium 3.9 (3.5-5.1) mEq/L Chloride 110 H (98-107) mEq/L Carbon Dioxide 26 (23-29) mEq/L BUN 14 (8-23) mg/dL Creatinine 1.36 H (0.70-1.30) mg/dL Glucose 114 H (70-105) mg/dL Calcium 8.1 L (8.6-10.3) mg/dL Adrenal panel 07/13/17 Range/Units 04:21 Sodium 140 (136-145) mEq/L Potassium 3.9 (3.5-5.1) mEq/L Chloride 110 H (98-107) mEq/L Carbon Dioxide 26 (23-29) mEq/L BUN 14 (8-23) mg/dL Creatinine 1.36 H (0.70-1.30) mg/dL Glucose 114 H (70-105) mg/dL Calcium 8.1 L (8.6-10.3) mg/dL - VTE Documentation of Mechanical Device: Intermittent pneumatic compression device Consult Discharge Plan - Plan Referrals: Daysi Cardenas CNP [Advanced Practice Nurse] - 07/24/17 1:40 pm [facility] [Primary Care Provider] -
[2017-07-14] MEDS: *HR* Heparin 5,000 UNIT/ML VIAL SQ SCH ×2 (05:38→17:03)
[2017-07-14 07:49] LABS: BUN/Creatinine Ratio 10 (6-26); Blood Urea Nitrogen 13 mg/dL (8-23); Calcium 8.2 mg/dL (8.6-10.3); Carbon Dioxide 26 mEq/L (23-29); Chloride 110 mEq/L (98-107); Glucose 86 mg/dL (70-105); Osmolality,Calculated 291 (280-300); Potassium 3.7 mEq/L (3.5-5.1); Sodium 141 mEq/L (136-145); eGFR For African Americans > 60 (> 60); eGFR For Non-African Americans 59 (> 60)
[2017-07-14 07:54] LABS: Basophils % 0.4 %; Eosinophils # 0.1 K/mcL (0.0-0.6); Eosinophils % 0.9 %; Hematocrit 32.6 % (37.5-50.1); Immature Granulocytes % 0.3 % (0-4); Lymphocytes # 1.4 K/mcL (0.6-4.6); Lymphocytes % 18.4 %; Mean Corpuscular HGB Conc 30.7 g/dL (31.6-35.5); Mean Corpuscular Hemoglobin 25.4 pg (28.0-33.3); Mean Corpuscular Volume 82.7 fL (83.0-100.0); Mean Platelet Volume 9.8 fL (9.4-12.4); Monocytes # 0.8 K/mcL (0.0-1.3); Monocytes % 10.6 %; Neutrophils # 5.3 K/mcL (1.6-8.9); Platelet Count 292 K/mcL (140-400); Red Blood Count 3.94 M/mcL (4.19-5.50); Segmented Neutrophils % 69.4 %
[2017-07-14] MEDS ORDERED: Methylnaltrexone 12 MG/0.6 ML SYRINGE SQ ONE (08:35)
[2017-07-14] MEDS: Pantoprazole 40 MG VIAL IVP SCH (09:06)
[2017-07-14] MEDS ORDERED: Ibuprofen 600 MG TABLET PO PRN (09:26)
[2017-07-14] MEDS ORDERED: *HR* OxyCODONE/APAP 5/325 TABLET PO PRN (09:28)
--- NOTE | 2017-07-14 09:37 | General Surgery Progress Note ---
<RonaldDaysi Quach - Last Filed: 07/14/17 09:31> Date of Encounter: 07/14/17 Time of Encounter: 09:15 - Assessment and Plan (1) Perforated diverticulum Current Visit: Yes Status: Acute Date of procedure: 07/11/17 Pre-op diagnosis: History of perforated sigmoid diverticulitis Post-op diagnosis: same Procedure: Robotic sigmoid resection with 33 mm EEA stapling Anesthesia: GETA Surgeon: Timi Tavarez Estimated blood loss (cc): 50 POD #3 as above. Pathology pending Abdominal dissension improved from yesterday. Patient reports passing flatus. His incision is clean, dry, and intact. His CHETNA site is within normal limits. There is a small amount of SS drainage in the CHETNA bulb. His Spear catheters in place and is urinary output is clear/yellow. No signs of bleeding noted. He is ambulating and getting out of bed independently. He states his abdominal discomfort is overall control. He has not used his. Morphine or oxycodone. He states he will take Tylenol if needed (avoiding NSAIDs due to chronic kidney disease). He reports using his incentive spirometry. Plan: CLD, consider advancing to full liquid diet this afternoon if he continues to pass flatus and/or has a bowel movement Continue CHETNA to bulb suction Ambulate as tolerated continue GI and DVT prophylaxis Continue discomfort management: PO Tylenol. Oxycodone is available for uncontrolled abdominal discomfort. IS use 10x QH while awake Repeat am labs (2) CKD (chronic kidney disease), stage III Current Visit: Yes Status: Chronic Creatinine Currently 1.25. Baseline creatinine appears to be around 1.27-1.64 stop IV fluids. Do not use NSAIDs for pain control Repeat am labs Resume home meds. 5mg PRN hydralazine now for HTN. Resume lisinopril daily at noon today and 0800 thereafter (3) Polycystic kidney disease Current Visit: No Status: Chronic Subjective Patient reports: no new complaints, feels better, pain is less, tolerating liquids well, voiding w/o difficulty, flatus, no bowel movement, afebrile Objective Vital Signs - Last 8 Hours Temp Pulse Resp BP Pulse Ox 07/14/17 07:06 98.1 F 75 14 151/83 95 07/14/17 04:12 98.3 F 75 18 163/81 95 Intake and Output 07/13/17 07/14/17 07/14/17 23:59 07:59 15:59 Intake Total 1000 / 1000 0 / 0 Output Total 690 / 690 1100 / 1100 Balance 310 / 310 -1100 / -1100 Intake: IV Fluids 1000 / 1000 0.9 % Sodium Chloride 1,000 ML 1000 / 1000 @ 75 mls/hr IVC [id number] Rx #:[id number] Oral 0 / 0 0 / 0 Output: Catheter 650 / 650 1050 / 1050 Wound Drainage 40 / 40 50 / 50 Right Abdomen 40 / 40 50 / 50 - General physical appearance well nourished, no distress, no pain, other (Sitting upright chair at bedside) - Eyes normal ocular movement - ENT atraumatic, normocephalic - Neck Neck exam: trachea midline, no venous distension - Respiratory normal expansion, normal respiratory effort, clear to percussion, clear to auscultation - Cardiovascular Cardiovascular exam: Present: RRR - Abdomen Abdomen: Present: bowel sounds present, soft, tender (Expected postoperative) Hernia: none - Genitourinary other (Spear catheter noted urinary output clear yellow) - Integumentary no growths, no abnormal pigmentation - Neurologic normal coordination, normal sensation - Musculoskeletal normal gait, normal posture - Psychiatric oriented to time, oriented to person, oriented to place, speech is normal, memory intact - Labs 07/14/17 06:55 07/14/17 06:55 Diabetes panel 07/14/17 Range/Units 06:55 Sodium 141 (136-145) mEq/L Potassium 3.7 (3.5-5.1) mEq/L Chloride 110 H (98-107) mEq/L Carbon Dioxide 26 (23-29) mEq/L BUN 13 (8-23) mg/dL Creatinine 1.25 (0.70-1.30) mg/dL Glucose 86 (70-105) mg/dL Calcium 8.2 L (8.6-10.3) mg/dL Calcium panel 07/14/17 Range/Units 06:55 Calcium 8.2 L (8.6-10.3) mg/dL Pituitary panel 07/14/17 Range/Units 06:55 Sodium 141 (136-145) mEq/L Potassium 3.7 (3.5-5.1) mEq/L Chloride 110 H (98-107) mEq/L Carbon Dioxide 26 (23-29) mEq/L BUN 13 (8-23) mg/dL Creatinine 1.25 (0.70-1.30) mg/dL Glucose 86 (70-105) mg/dL Calcium 8.2 L (8.6-10.3) mg/dL Adrenal panel 07/14/17 Range/Units 06:55 Sodium 141 (136-145) mEq/L Potassium 3.7 (3.5-5.1) mEq/L Chloride 110 H (98-107) mEq/L Carbon Dioxide 26 (23-29) mEq/L BUN 13 (8-23) mg/dL Creatinine 1.25 (0.70-1.30) mg/dL Glucose 86 (70-105) mg/dL Calcium 8.2 L (8.6-10.3) mg/dL - VTE Documentation of Mechanical Device: Intermittent pneumatic compression device Consult Discharge Plan - Plan Referrals: Daysi Cardenas, PASTRY BAKER [Advanced Practice Nurse] - 07/24/17 1:40 pm [facility] [[facility] Care Provider[facility] - <Nina Saldivar - Last Filed: 07/14/17 13:25> Date of Encounter: 07/14/17 - Assessment and Plan (1) S/P colectomy Current Visit: Yes Status: Acute pt is pod# sigmoidectomy was tolaterating sips clears, continue clears today having flatus, no bm continue spear due to bladder repair ambulate oob to chair pain well controlled gi/dvt prophylasix (2) Intraoperative bladder injury Current Visit: Yes Status: Acute spear catheter for 2 weeks CHETNA drain Serosan spear clear yellow urine (3) Hyperlipidemia Current Visit: No Status: Chronic will restart home medication when tolerating further diet Qualifiers: Hyperlipidemia type: unspecified Qualified Code(s): E78.5 - Hyperlipidemia , unspecified (4) Hypertension Current Visit: No Status: Chronic minimal hypertension, restarted home lisinopril monitor Qualifiers: Hypertension type: essential hypertension Qualified Code(s): I10 - Essential (primary) hypertension (5) Leukocytosis Current Visit: Yes Status: Resolved elevated wbc yesterday, today normal Qualifiers: Leukocytosis type: unspecified Qualified Code(s): D72.829 - Elevated white blood cell count, unspecified Subjective Patient reports: feels better, pain is less, tolerating liquids well (sips), voiding w/o difficulty, flatus, no bowel movement, afebrile Objective Vital Signs - Last 8 Hours Temp Pulse Resp BP Pulse Ox 07/14/17 11:25 97.9 F 77 14 156/88 96 07/14/17 07:06 98.1 F 75 14 151/83 95 Intake and Output 07/13/17 07/14/17 07/14/17 23:59 07:59 15:59 Intake Total 1000 / 1000 0 / 0 1640 / 1640 Output Total 690 / 690 1100 / 1100 400 / 400 Balance 310 / 310 -1100 / -1100 1240 / 1240 Intake: IV Fluids 1000 / 1000 800 / 800 0.9 % Sodium Chloride 1,000 ML 1000 / 1000 800 / 800 @ 75 mls/hr [facility]C [id number] Rx #:[id number] Oral 0 / 0 0 / 0 840 / 840 Output: Catheter 650 / 650 1050 / 1050 400 / 400 Wound Drainage 40 / 40 50 / 50 Right Abdomen 40 / 40 50 / 50 - General physical appearance no distress, no pain - Eyes PERRL, normal ocular movement - ENT normal mucosa, normocephalic - Neck Neck exam: trachea midline - Respiratory normal expansion, clear to auscultation - Cardiovascular Cardiovascular exam: Present: RRR - Abdomen Abdomen: Present: bowel sounds present, soft, tender - Incision Incision: Present: clean and dry, intact - Genitourinary other - Integumentary no growths, no abnormal pigmentation - Neurologic normal sensation - Musculoskeletal normal posture - Psychiatric oriented to time, oriented to person, oriented to place, speech is normal, memory intact - Additional Exam CHETNA drain serosang drainage spear - clear yellow urine - Labs 07/14/17 06:55 07/14/17 06:55 Diabetes panel 07/14/17 Range/Units 06:55 Sodium 141 (136-145) mEq/L Potassium 3.7 (3.5-5.1) mEq/L Chloride 110 H (98-107) mEq/L Carbon Dioxide 26 (23-29) mEq/L BUN 13 (8-23) mg/dL Creatinine 1.25 (0.70-1.30) mg/dL Glucose 86 (70-105) mg/dL Calcium 8.2 L (8.6-10.3) mg/dL Calcium panel 07/14/17 Range/Units 06:55 Calcium 8.2 L (8.6-10.3) mg/dL Pituitary panel 07/14/17 Range/Units 06:55 Sodium 141 (136-145) mEq/L Potassium 3.7 (3.5-5.1) mEq/L Chloride 110 H (98-107) mEq/L Carbon Dioxide 26 (23-29) mEq/L BUN 13 (8-23) mg/dL Creatinine 1.25 (0.70-1.30) mg/dL Glucose 86 (70-105) mg/dL Calcium 8.2 L (8.6-10.3) mg/dL Adrenal panel 07/14/17 Range/Units 06:55 Sodium 141 (136-145) mEq/L Potassium 3.7 (3.5-5.1) mEq/L Chloride 110 H (98-107) mEq/L Carbon Dioxide 26 (23-29) mEq/L BUN 13 (8-23) mg/dL Creatinine 1.25 (0.70-1.30) mg/dL Glucose 86 (70-105) mg/dL Calcium 8.2 L (8.6-10.3) mg/dL - Attending Attestation I have personally performed a face to face evaluation on this patient. I have reviewed and agree with the care plan. History and Exam by me shows:
[2017-07-14] MEDS ORDERED: Acetaminophen 325 MG TABLET PO PRN (09:44)
[2017-07-14] MEDS ORDERED: NON-FORMULARY MEDICATION 1 EACH EACH (Lisinopril [Zestril] 40 MG) PO SCH (09:47)
[2017-07-14] MEDS: Lisinopril 20 MG TABLET PO SCH (17:03)
[2017-07-14] MEDS: Metoclopramide 10 MG/2 ML VIAL IVP SCH ×2 (17:03→17:04)
[2017-07-14] MEDS: Aspirin Enteric Coated 81 MG Tablet PO SCH (17:03)
[2017-07-15] MEDS: *HR* Heparin 5,000 UNIT/ML VIAL SQ SCH ×2 (05:34→18:38)
[2017-07-15] MEDS: Metoclopramide 10 MG/2 ML VIAL IVP SCH ×3 (05:34→13:25)
[2017-07-15 07:40] LABS: BUN/Creatinine Ratio 10 (6-26); Blood Urea Nitrogen 13 mg/dL (8-23); Calcium 8.5 mg/dL (8.6-10.3); Carbon Dioxide 26 mEq/L (23-29); Chloride 108 mEq/L (98-107); Glucose 91 mg/dL (70-105); Osmolality,Calculated 290 (280-300); Potassium 3.5 mEq/L (3.5-5.1); Sodium 140 mEq/L (136-145); eGFR For African Americans > 60 (> 60); eGFR For Non-African Americans 57 (> 60)
[2017-07-15 07:50] LABS: Basophils % 0.5 %; Eosinophils # 0.2 K/mcL (0.0-0.6); Eosinophils % 2.9 %; Hematocrit 32.8 % (37.5-50.1); Hemoglobin 10.1 g/dL (12.9-16.9); Immature Granulocytes % 0.5 % (0-4); Lymphocytes # 1.4 K/mcL (0.6-4.6); Lymphocytes % 22.1 %; Mean Corpuscular HGB Conc 30.8 g/dL (31.6-35.5); Mean Corpuscular Hemoglobin 25.1 pg (28.0-33.3); Mean Corpuscular Volume 81.6 fL (83.0-100.0); Mean Platelet Volume 9.7 fL (9.4-12.4); Monocytes # 0.6 K/mcL (0.0-1.3); Monocytes % 9.3 %; Neutrophils # 4.2 K/mcL (1.6-8.9); Platelet Count 302 K/mcL (140-400); Red Blood Count 4.02 M/mcL (4.19-5.50); Red Cell Distribution Width 19.6 % (11.5-14.5); Segmented Neutrophils % 64.7 %
[2017-07-15] MEDS: Lisinopril 20 MG TABLET PO SCH (08:13)
[2017-07-15] MEDS: Aspirin Enteric Coated 81 MG Tablet PO SCH (08:13)
[2017-07-15] MEDS ORDERED: *HR* Metoprolol 5 MG/5 ML VIAL IVP PRN (11:09)
--- NOTE | 2017-07-15 13:16 | General Surgery Progress Note ---
Date of Encounter: 07/15/17 Time of Encounter: 13:13 - Assessment and Plan (1) S/P colectomy Current Visit: Yes Status: Acute pt is pod# 4sigmoidectomy advance to fulls dc ivf continue spear due to bladder repair ambulate oob to chair pain well controlled gi/dvt prophylasix (2) Intraoperative bladder injury Current Visit: Yes Status: Acute spear catheter for 2 weeks CHETNA drain Serosan spear clear yellow urine (3) Hyperlipidemia Current Visit: No Status: Chronic restart home med Qualifiers: Hyperlipidemia type: unspecified Qualified Code(s): E78.5 - Hyperlipidemia , unspecified (4) Hypertension Current Visit: No Status: Chronic minimal hypertension, restarted home lisinopril monitor Qualifiers: Hypertension type: essential hypertension Qualified Code(s): I10 - Essential (primary) hypertension Subjective Patient reports: no new complaints, feels better, tolerating liquids well, voiding w/o difficulty (spear in place), flatus, bowel movement, afebrile Objective Vital Signs - Last 8 Hours Temp Pulse Resp BP Pulse Ox 07/15/17 10:28 98.7 F 82 14 139/90 96 07/15/17 07:01 97.9 F 68 14 183/94 96 Intake and Output 07/14/17 07/15/17 07/15/17 23:59 07:59 15:59 Intake Total 480 / 480 0 / 0 780 / 780 Output Total 710 / 710 1100 / 1100 175 / 175 Balance -230 / -230 -1100 / -1100 605 / 605 Intake: Oral 480 / 480 0 / 0 780 / 780 Output: Catheter 700 / 700 1100 / 1100 175 / 175 Wound Drainage 10 / 10 0 / 0 0 / 0 Right Abdomen 10 / 10 0 / 0 0 / 0 Other: Meal Dinner Breakfast Percent of Meal Consumed 0% Weight 78.6 kg Patient Weight 07/15/17 23:59 Weight 78.6 kg - General physical appearance well developed, well nourished, no distress - Eyes PERRL, normal ocular movement - ENT normal mucosa, normocephalic - Neck Neck exam: trachea midline - Respiratory normal expansion, normal respiratory effort - Cardiovascular Cardiovascular exam: Present: RRR - Abdomen Abdomen: Present: bowel sounds present, soft, tender (appropriate post op tenderness). Absent: guarding, rebound - Incision Incision: Present: clean and dry, intact - Genitourinary normal penis with no external lesions, other (spear with clear yellow urine) - Integumentary no rash - Neurologic CN 2-12 grossly intact - Musculoskeletal normal posture - Psychiatric oriented to time, oriented to person, oriented to place, memory intact - Labs 07/15/17 06:39 07/15/17 06:39 Diabetes panel 07/15/17 Range/Units 06:39 Sodium 140 (136-145) mEq/L Potassium 3.5 (3.5-5.1) mEq/L Chloride 108 H (98-107) mEq/L Carbon Dioxide 26 (23-29) mEq/L BUN 13 (8-23) mg/dL Creatinine 1.27 (0.70-1.30) mg/dL Glucose 91 (70-105) mg/dL Calcium 8.5 L (8.6-10.3) mg/dL Calcium panel 07/15/17 Range/Units 06:39 Calcium 8.5 L (8.6-10.3) mg/dL Pituitary panel 07/15/17 Range/Units 06:39 Sodium 140 (136-145) mEq/L Potassium 3.5 (3.5-5.1) mEq/L Chloride 108 H (98-107) mEq/L Carbon Dioxide 26 (23-29) mEq/L BUN 13 (8-23) mg/dL Creatinine 1.27 (0.70-1.30) mg/dL Glucose 91 (70-105) mg/dL Calcium 8.5 L (8.6-10.3) mg/dL Adrenal panel 07/15/17 Range/Units 06:39 Sodium 140 (136-145) mEq/L Potassium 3.5 (3.5-5.1) mEq/L Chloride 108 H (98-107) mEq/L Carbon Dioxide 26 (23-29) mEq/L BUN 13 (8-23) mg/dL Creatinine 1.27 (0.70-1.30) mg/dL Glucose 91 (70-105) mg/dL Calcium 8.5 L (8.6-10.3) mg/dL - VTE Documentation of Mechanical Device: Intermittent pneumatic compression device Consult Discharge Plan - Plan Referrals: Daysi Cardenas CNP [Advanced Practice Nurse] - 07/24/17 1:40 pm [facility]Primary Care Provider[facility] -
[2017-07-16 04:40] LABS: Basophils % 0.5 %; Eosinophils # 0.3 K/mcL (0.0-0.6); Eosinophils % 5.2 %; Hematocrit 31.8 % (37.5-50.1); Hemoglobin 9.9 g/dL (12.9-16.9); Immature Granulocytes % 0.3 % (0-4); Lymphocytes # 1.5 K/mcL (0.6-4.6); Lymphocytes % 24.3 %; Mean Corpuscular HGB Conc 31.1 g/dL (31.6-35.5); Mean Corpuscular Hemoglobin 25.3 pg (28.0-33.3); Mean Corpuscular Volume 81.1 fL (83.0-100.0); Mean Platelet Volume 9.6 fL (9.4-12.4); Monocytes # 0.7 K/mcL (0.0-1.3); Monocytes % 11.2 %; Neutrophils # 3.6 K/mcL (1.6-8.9); Platelet Count 287 K/mcL (140-400); Red Blood Count 3.92 M/mcL (4.19-5.50); Red Cell Distribution Width 19.5 % (11.5-14.5); Segmented Neutrophils % 58.5 %
[2017-07-16 05:30] VITALS: BP 150/86
[2017-07-16] MEDS: *HR* Heparin 5,000 UNIT/ML VIAL SQ SCH (06:15)
[2017-07-16] MEDS: Aspirin Enteric Coated 81 MG Tablet PO SCH (08:33)
[2017-07-16] MEDS: Lisinopril 20 MG TABLET PO SCH (08:33)
--- NOTE | 2017-07-16 09:16 | Discharge Summary ---
Date of Encounter: 07/16/17 Time of Encounter: 09:12 - Discharge Diagnosis (1) Perforated diverticulum Priority: Primary Status: Acute (2) CKD (chronic kidney disease), stage III Priority: Secondary Status: Chronic (3) Polycystic kidney disease Priority: Secondary Status: Chronic - Discharge Medications Prescriptions: Acetaminophen [8 Hour] 650 mg PO Q8H PRN #30 tablet.er PRN Reason: Pain Tramadol HCl [Ultram] 50 mg PO QID PRN 7 Days #21 tab PRN Reason: Pain not relieved by Tylenol Home Medications: Aspirin Enteric Coated [Aspirin EC] 81 mg PO DAILY 05/15/17 [History] Atorvastatin Calcium [Lipitor] 40 mg PO DAILY 05/15/17 [History] Glucosamine/D3/Boswellia Vijaya [Osteo Bi-Flex Tablet] 1 tab PO DAILY 05/15/17 [ History] Lisinopril [Zestril] 40 mg PO DAILY 05/15/17 [History] Multivit-Min/FA/Lycopen/Lutein [Centrum Silver Tablet] 1 each PO DAILY 05/15/17 [History] Acetaminophen [8 Hour] 650 mg PO Q8H PRN #30 tablet.er 07/16/17 [Rx] Tramadol HCl [Ultram] 50 mg PO QID PRN 7 Days #21 tab 07/16/17 [Rx] Allergies/Adverse Reactions: 3 Allergy/AdvReac Type Severity Reaction Status Date / Time No Known Allergies Allergy Verified 07/11/17 12:53 General Surgery Exam Initial Vital Signs Temp Pulse Resp BP Pulse Ox 97.6 F 99 18 138/103 99 07/11/17 11:58 07/11/17 11:58 07/11/17 11:58 07/11/17 11:58 07/11/17 11:58 - General physical appearance well developed, well nourished, no distress, no pain - ENT atraumatic, normocephalic - Neck trachea midline, no venous distension - Respiratory normal expansion, normal respiratory effort, clear to auscultation - Cardiovascular Cardiovascular exam: Present: RRR, 15, 16 - Abdomen Abdomen general surgery: Present: bowel sounds present, soft, tender (Expected postoperative) - Incision Incision: Present: clean and dry, intact - Genitourinary Present: other (Spear catheter in place) - Integumentary Integumentary general surgery: Present: warm and dry, no abnormal pigmentation - Neurologic Present: CN 2-12 grossly intact, normal coordination, normal sensation - Musculoskeletal Present: normal gait, normal posture - Psychiatric Psychiatric general surgery: Present: A&Ox3, appropriate, oriented to person, oriented to place, oriented to time, speech is normal, memory intact Date of admission: 07/11/17 17:44 Primary care physician: [facility] Discharging clinician: Timi Cardenas) - Patient Status Disposition: Home, Self-Care Condition: Good Functional capacity at discharge: independent ambulation Overall status at discharge: patient is progressing back to baseline - Ambulatory Orders Ambulatory Orders: XR cysto urethrogram [XR] Time Frame: 08/03/17, Facility: [facility], Location: Radiology - Discharge Instructions Instructions: Colectomy (DC), Urinary Leg Bag (GEN), Loy-Garg Drain Care ( DC) Follow Up With: Daysi Cardenas CNP [Advanced Practice Nurse] - 07/24/17 1:40 pm [facility],PCP [Primary Care Provider] - Additional Instructions: General Surgical Discharge Instructions 1. No pushing, pulling, or lifting greater than 15 lbs for 2-4 weeks (depending upon procedure). 2. You may shower beginning today, but no tub baths, soaking, or swimming for 2 weeks. 3. You may resume driving when you are off narcotics and are safe to react in a car. 4. Take ibuprofen every 8 hours for discomfort. If this does not relieve discomfort, you may take the as needed Percocet. Take narcotics as directed. Do not take more narcotics then directed and do not share your narcotics with any other person. Do not drink alcohol while on narcotics. 5. Take stool softeners (Colace) or a water based laxative (Miralax) while taking narcotics. You may hold for loose stools. 6. Report any fevers greater than 100.5F, increase abdominal discomfort, drainage that looks like pus, increased redness or pain at the surgical site, or any vomiting. 7. Report any pain in the calves, shortness of breath, or rapid heartbeat. 8. Follow-up in the office as directed. 9. If you were prescribed antibiotics, do not stop them without talking to your provider. Do not remove the spear catheter; keep track of your output and bring with you to your appointment. Do not let the CHETNA drain dangle from your body. Spend on a lanyard or other necklace when you shower. Keep your CHETNA ball to suction as discussed. Bring the drain record with you to your next appointment. - Diet and Activity Activity: increase activity as tolerated Diet: advance to your usual diet - Hospital Course Hospital course: Mr. Grewal is a 62 year old male who presented on 07/11/2017 for an elective sigmoid colon resection, with Dr. 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 His hospital course has been uncomplicated. He is ambulating avoiding without difficulty, passing flatus, having bowel movements, afebrile, and vital signs are stable. His abdominal discomfort has been controlled with the use of Tylenol. He has not used any narcotics during the submission. We will begin discharge planning to home with a follow-up in the office and one week for a drain check and 2 weeks with a cystogram per Spear catheter for consideration of d/c of Spear. He will be sent home with the Spear catheter in place, and has been given a leg back with instructions on use. - Time Spent with Patient Total time spent providing and/or coordinating discharge services: Labs on day of discharge: Labs from last 24 hours 07/16/17 03:59 WBC 6.2 RBC 3.92 L Hgb 9.9 L Hct 31.8 L MCV 81.1 L MCH 25.3 L MCHC 31.1 L RDW 19.5 H Plt Count 287 MPV 9.6 Immature Gran % 0.3 Seg Neutrophils % 58.5 Lymphocytes % 24.3 Monocytes % 11.2 Eosinophils % 5.2 Basophils % 0.5 Neutrophils # 3.6 Lymphocytes # 1.5 Monocytes # 0.7 Eosinophils # 0.3 Basophils # 0.0 - Impressions ITS Impressions Chest/Abdomen X-ray 07/13/17 16:27 IMPRESSION: Gaseous distention of loops of small bowel and colon most suggestive of ileus. D/ / Buck Brown MD / Buck Brown MD Interpreting Provider: Buck Brown MD
[2017-07-16 09:45] LABS: BUN/Creatinine Ratio 9 (6-26); Blood Urea Nitrogen 12 mg/dL (8-23); Calcium 8.5 mg/dL (8.6-10.3); Carbon Dioxide 26 mEq/L (23-29); Chloride 107 mEq/L (98-107); Glucose 96 mg/dL (70-105); Osmolality,Calculated 290 (280-300); Potassium 3.5 mEq/L (3.5-5.1); Sodium 140 mEq/L (136-145); eGFR For African Americans > 60 (> 60); eGFR For Non-African Americans 54 (> 60)
== END 2017-07-16 13:56 | disposition home or self-care (01) | DRG 330 ==
LOC: SAMDAY 11:29 → 3ANU 17:44
PROVIDERS: ADMIT Surgery; ATTEND Surgery

== ENCOUNTER 2021-09-28 16:10 | Observation (INO) ==
[2021-09-28 16:44] LABS: Basophils # 0.1 K/mcL (0.0-0.2); Basophils % 0.9 %; Eosinophils # 0.5 K/mcL (0.0-0.6); Eosinophils % 6.8 %; Immature Granulocytes % 0.3 % (0-4); Lymphocytes % 29.7 %; Mean Corpuscular HGB Conc 31.7 g/dL (31.6-35.5); Mean Corpuscular Hemoglobin 29.2 pg (28.0-33.3); Mean Corpuscular Volume 92.1 fL (83.0-100.0); Mean Platelet Volume 9.6 fL (9.4-12.4); Monocytes # 0.7 K/mcL (0.0-1.3); Neutrophils # 3.4 K/mcL (1.6-8.9); Platelet Count 246 K/mcL (140-400); Red Blood Count 4.45 M/mcL (4.19-5.50); Red Cell Distribution Width 14.4 % (11.5-14.5); Segmented Neutrophils % 51.3 %; White Blood Count 6.6 K/mcL (4.3-11.1)
[2021-09-28 17:03] LABS: Calcium 9.5 mg/dL (8.6-10.3); Potassium 5.5 mEq/L (3.5-5.1)
[2021-09-28] MEDS ORDERED: SODIUM ZIRCONIUM CYCLOSILICATE 5 GM POWD.PACK PO ONE (17:56)
[2021-09-28] MEDS ORDERED: Ondansetron 4 MG/2 ML VIAL IVP PRN (18:23)
[2021-09-28] MEDS ORDERED: Naloxone 0.4 MG/ML INJ IVP PRN ×2 (18:23→21:23)
[2021-09-28] MEDS ORDERED: Nitroglycerin 0.4 MG TAB.SUBL SL PRN (18:25)
[2021-09-28] MEDS ORDERED: Insulin Human Regular 10 UNIT in 0.9 % Sodium Chloride 10 ML IV ONE (21:23)
[2021-09-28] MEDS ORDERED: *HR* Dextrose 50 % in Water (Syg) 50 ML SYRINGE IVP ONE (21:23)
[2021-09-28] MEDS ORDERED: Calcium Gluconate 1,000 MG/10 ML VIAL IVP ONE (21:35)
[2021-09-28] MEDS: Magnesium Oxide 400 MG TABLET PO SCH (21:54)
[2021-09-28] MEDS: carvediloL 25 MG TABLET PO SCH (21:54)
[2021-09-28] MEDS ORDERED: Calcium Gluconate 1gm/50mL 1 GM/50 ML BAG IVPB ONE (22:00)
[2021-09-28] MEDS: *HR* Heparin 5,000 UNIT/ML VIAL SQ SCH (22:25)
[2021-09-29] MEDS: SODIUM ZIRCONIUM CYCLOSILICATE 5 GM POWD.PACK PO SCH ×2 (02:10→07:59)
[2021-09-29 02:53] LABS: Prothrombin Time 11.2 Seconds (9.4-12.1)
[2021-09-29 02:56] LABS: Activated Partial Thrombo Time 30.3 Seconds (26.0-36.0)
[2021-09-29 03:04] LABS: Albumin 3.5 g/dL (3.5-5.7); Albumin/Globulin Ratio 1.3 (1.1-2.2); Bilirubin,Total 0.5 mg/dL (0.3-1.0); Calcium 9.4 mg/dL (8.6-10.3); Globulin 2.8 g/dL (2.4-3.5); Magnesium 1.9 mg/dL (1.6-2.6); Phosphorous 3.8 mg/dL (2.7-4.5); Potassium 5.1 mEq/L (3.5-5.1); Total Protein 6.3 g/dL (6.4-8.9)
[2021-09-29 03:17] LABS: Potassium,Urine 25.2 mEq/L
[2021-09-29 04:40] LABS: Protein/Creatinine Ratio,Urine 0.15 mg/mg (0.00-0.20)
[2021-09-29] MEDS: *HR* Heparin 5,000 UNIT/ML VIAL SQ SCH (05:05)
[2021-09-29] MEDS: Magnesium Oxide 400 MG TABLET PO SCH (07:59)
[2021-09-29] MEDS: carvediloL 25 MG TABLET PO SCH (07:59)
[2021-09-29 08:25] LABS: Bilirubin,Urine Negative (Negative); Blood,Urine Negative (Negative); Clarity,Urine Clear (Clear); Color,Urine Colorless (Yellow); Glucose,Urine (UA) Normal (Normal); Ketones,Urine Negative (Negative); Leukocyte Esterase,Urine Negative (Negative); Nitrite,Urine Negative (Negative); Protein,Urine Negative (Neg-Trace); Specific Gravity,Urine 1.013 (1.010-1.025); Urobilinogen,Urine Normal (Normal)
[2021-09-29] MEDS ORDERED: amLODIPine 5 MG TABLET PO SCH (09:00)
[2021-09-29] MEDS ORDERED: Renal Vitamin 1 CAP CAPSULE PO SCH (09:00)
[2021-09-29] MEDS ORDERED: Cholecalciferol (D-3) 1,000 UNIT (25MCG) TABLET PO SCH (09:00)
[2021-09-29] MEDS ORDERED: Aspirin Enteric Coated 81 MG Tablet PO SCH (09:00)
[2021-09-29 10:16] VITALS: BP 117/70; PULSE 70; TEMP 97.8; O2SAT 98
== END 2021-09-29 10:36 | disposition home or self-care (01) ==
LOC: EMEROOARM 16:10 → 2ANU 16:10 → SUATTDRO 18:45 → 2ANU 20:13
PROVIDERS: ADMIT Internal Medicine; ATTEND Internal Medicine